=== PATIENT | male | born 1955 | race Caucasian/White ===

== ENCOUNTER 2018-07-12 18:15 | Observation (INO) ==
--- NOTE | 2018-07-12 19:02 | Emergency Department Note ---
Disposition Clinical Impression: CHF (congestive heart failure) Qualifiers: Heart failure type: unspecified Heart failure chronicity: unspecified Qualified Code(s): I50.9 - Heart failure, unspecified Dyspnea Qualifiers: Dyspnea type: unspecified Qualified Code(s): R06.00 - Dyspnea, unspecified Disposition: Admitted As Inpatient Condition: Good Referrals: Ronnie Moncada MD [Primary Care Provider] - Forms: ED Satisfaction Letter Time of Disposition: 20:52 SOB HPI - General Chief Complaint: ED Recheck/Abnormal Lab/Rx Stated Complaint: Needs admitted Time Seen by Provider: 07/12/18 18:40 Nursing Notes Reviewed: Yes Vital Signs Reviewed: Yes - History of Present Illness 63-year-old male smoker presents via wheelchair from his resident care spec's office earlier today with concern for pneumonia. Reportedly patient was therefore a office visit, chest x-ray was performed that showed pneumonia. His resident care spec, Dr. Ross, who advised him to come to the emergency department. Patient and family mention that patient had a admission to [facility] approximately 2 months ago. Since then he has been following up with primary care provider. They describe ration has finished a prescription of amoxicillin as well as doxycycline with the last dose yesterday. Patient does mention chronic dyspnea, is on home oxygen. He also describes increasing sputum produc tion and cough and chills. Family reports recent diagnosis of CHF. Denies any chest pain, confusion, nausea, vomiting, abdominal pain. - Related Data Home Medications Medication Instructions Recorded Confirmed Aspirin [Adult Aspirin] 81 mg PO DAILY 07/12/18 07/12/18 DiphenhydraMINE [Benadryl] 25 mg PO Q8H PRN 07/12/18 07/12/18 Doxycycline Hyclate 1 tab PO DAILY 07/12/18 07/12/18 Levothyroxine Sodium [Levoxyl] 150 mcg PO QAM 07/12/18 07/12/18 Metoprolol Succinate [Toprol Xl] 50 mg PO DAILY 07/12/18 07/12/18 Sacubitril/Valsartan 24/26 mg 1 tab PO BID 07/12/18 07/12/18 [Entresto 24 mg-26 mg Tablet] Torsemide [Demadex] 20 mg PO BID 07/12/18 07/12/18 Allergies Allergy/AdvReac Type Severity Reaction Status Date / Time dexamethasone Allergy "Ended up Verified 07/12/18 19:41 with a feeding tube." All systems ED: reviewed and negative except as stated. Review of Systems: As Per HPI Constitutional: Reports: as per HPI Eyes: Denies: eye pain ENT ED: Denies: throat pain, dysphagia Cardiovascular: Denies: chest pain Respiratory: Reports: cough, dyspnea Gastrointestinal: Reports: other (no salivation _ chronic). 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 Absent: conjunctival injection - ENT ENT exam: normal oropharynx, mucous membranes moist - Neck Neck exam: Present: full ROM - Chest Chest inspection: Present: symmetric chest wall rise - Respiratory Respiratory exam: Absent: respiratory distress, wheezes, stridor, accessory muscle use - Expanded Respiratory Exam Location: rhonchi: Left, Right - Cardiovascular Cardiovascular exam: Present: regular rate, normal rhythm - Abdominal Exam Abdominal exam: Present: soft, Non-Tender - Extremities Exam Extremities exam: Present: normal inspection, full ROM, normal capillary refill - Back Exam Back exam: Present: full ROM. Absent: CVA tenderness (R), CVA tenderness (L) - Neurological Exam Neurological exam: Present: alert - Psychiatric Psychiatric exam: Present: normal affect, normal mood - Skin Skin exam: Present: warm, dry, intact, normal color. Absent: rash, cyanosis, diaphoresis Course Course Narrative: 63-year-old male smoker presents via wheelchair from his resident care spec's office earlier today with concern for pneumonia. Recent diagnosis of CHF. Cxr at Dr. Aguiar's office today concerning for CHF and Dr. Ross was concerned for pneumonia. Chills and dyspnea at home, with worsening sputum production. Recently finished abx of amoxicllin and doxy rx by PCP. Recent admission around end of Apr 2018 at [place]. On examination patient is alert. Answers questions appropriately. No acute distress. Bilateral rhonchi and lungs. No abdominal tenderness. Heart regular rate and rhythm. Appears well-hydrated. There is mild edema to bilateral lower extremities. Patient is asking for something to eat. Patient afebrile here. Vitals within normal limits. We will plan for admission. Discussed patient with attending Dr. Em who agreed to see patient, advised for CRP and Lasix. Workup initiated. Will plan Abx after blood cultures. CXR: Findings suggest congestive heart failure with a right pleural effusion and fluid in the right minor fissure - Reevaluation(s) Reevaluation #1: No elevation in troponin in WBC. CRP 28. BNP >5000. 02 on room air 95%. BP recheck was 90/52, but after cuff adjustment 105/64. HR wnl. Pt asymptomatic. Hospitalist paged. Time: 20:50 Reevaluation #2: Patient discussed with and accepted by hospitalist Dr. Montano Time: 21:05 Vital Signs Temperature 97.0 F L 07/12/18 18:22 Pulse Rate 61 07/12/18 18:22 Respiratory Rate 22 07/12/18 18:22 Blood Pressure 104/66 07/12/18 18:22 O2 Sat by Pulse Oximetry 86 07/12/18 18:22 Temperature 97.0 F L 07/12/18 18:29 Pulse Rate 68 07/12/18 20:47 Respiratory Rate 16 07/12/18 20:47 Blood Pressure 105/64 07/12/18 20:47 O2 Sat by Pulse Oximetry 95 07/12/18 20:47 Oxygen Delivery Oxygen Delivery Room Air Shortness of Breath/Dyspnea - [facility] Narrative Medical decision making narrative: Laboratory Tests 07/12/18 07/12/18 07/12/18 19:46 19:46 19:46 WBC 5.8 RBC 3.79 L Hgb 13.5 Hct 39.2 MCV 103.4 H MCH 35.6 H MCHC 34.4 RDW 16.0 H Plt Count 199 MPV 9.6 Immature Gran % 0.3 Seg Neutrophils % 81.7 Lymphocytes % 10.3 Monocytes % 6.5 Eosinophils % 0.5 Basophils % 0.7 Neutrophils # 4.7 Lymphocytes # 0.6 Monocytes # 0.4 Eosinophils # 0.0 Basophils # 0.0 Sodium 129 L Potassium 3.8 Chloride 92 L Carbon Dioxide 28 BUN 17 Creatinine 1.53 H Est GFR ( Amer) 56 L Est GFR (Non-Af Amer) 46 L BUN/Creatinine Ratio 11 Glucose 107 H Calculated Osmolality 270 L Lactic Acid 1.6 Calcium 9.3 Troponin I < 0.03 C-Reactive Protein B-Natriuretic Peptide 07/12/18 07/12/18 19:46 19:46 WBC RBC Hgb Hct MCV MCH MCHC RDW Plt Count MPV Immature Gran % Seg Neutrophils % Lymphocytes % Monocytes % Eosinophils % Basophils % Neutrophils # Lymphocytes # Monocytes # Eosinophils # Basophils # Sodium Potassium Chloride Carbon Dioxide BUN Creatinine Est GFR ( Amer) Est GFR (Non-Af Amer) BUN/Creatinine Ratio Glucose Calculated Osmolality Lactic Acid Calcium Troponin I C-Reactive Protein 29 H B-Natriuretic Peptide > 5000 H - Lab Data Lab results reviewed: Yes I reviewed the patient's lab results. Result diagrams: 07/12/18 19:46 07/12/18 19:46 Lab Results 07/12/18 07/12/18 07/12/18 Range/Units 19:46 19:46 19:46 WBC 5.8 (4.3-11.1) K/mcL RBC 3.79 L (4.19-5.50) M/mcL Hgb 13.5 (12.9-16.9) g/dL Hct 39.2 (37.5-50.1) % MCV 103.4 H (83.0-100.0) fL MCH 35.6 H (28.0-33.3) pg MCHC 34.4 (31.6-35.5) g/dL RDW 16.0 H (11.5-14.5) % Plt Count 199 (140-400) K/mcL MPV 9.6 (9.4-12.4) fL Immature Gran % 0.3 (0-4) % Seg Neutrophils % 81.7 % Lymphocytes % 10.3 % Monocytes % 6.5 % Eosinophils % 0.5 % Basophils % 0.7 % Neutrophils # 4.7 (1.6-8.9) K/mcL Lymphocytes # 0.6 (0.6-4.6) K/mcL Monocytes # 0.4 (0.0-1.3) K/mcL Eosinophils # 0.0 (0.0-0.6) K/mcL Basophils # 0.0 (0.0-0.2) K/mcL Sodium 129 L (136-145) mEq/L Potassium 3.8 (3.5-5.1) mEq/L Chloride 92 L (98-107) mEq/L Carbon Dioxide 28 (23-29) mEq/L BUN 17 (8-23) mg/dL Creatinine 1.53 H (0.70-1.30) mg/dL Est GFR ( Amer) 56 L (> 60) Est GFR (Non-Af Amer) 46 L (> 60) BUN/Creatinine Ratio 11 (6-26) Glucose 107 H (70-105) mg/dL Calculated Osmolality 270 L (280-300) Lactic Acid 1.6 (0.5-2.2) mmol/L Calcium 9.3 (8.6-10.3) mg/dL Troponin I < 0.03 (< 0.04) ng/mL C-Reactive Protein (Less than 10) mg/L B-Natriuretic Peptide (Less than 100) pg/mL 07/12/18 07/12/18 Range/Units 19:46 19:46 WBC (4.3-11.1) K/mcL RBC (4.19-5.50) M/mcL Hgb (12.9-16.9) g/dL Hct (37.5-50.1) % MCV (83.0-100.0) fL MCH (28.0-33.3) pg MCHC (31.6-35.5) g/dL RDW (11.5-14.5) % Plt Count (140-400) K/mcL MPV (9.4-12.4) fL Immature Gran % (0-4) % Seg Neutrophils % % Lymphocytes % % Monocytes % % Eosinophils % % Basophils % % Neutrophils # (1.6-8.9) K/mcL Lymphocytes # (0.6-4.6) K/mcL Monocytes # (0.0-1.3) K/mcL Eosinophils # (0.0-0.6) K/mcL Basophils # (0.0-0.2) K/mcL Sodium (136-145) mEq/L Potassium (3.5-5.1) mEq/L Chloride (98-107) mEq/L Carbon Dioxide (23-29) mEq/L BUN (8-23) mg/dL Creatinine (0.70-1.30) mg/dL Est GFR ( Amer) (> 60) Est GFR (Non-Af Amer) (> 60) BUN/Creatinine Ratio (6-26) Glucose (70-105) mg/dL Calculated Osmolality (280-300) Lactic Acid (0.5-2.2) mmol/L Calcium (8.6-10.3) mg/dL Troponin I (< 0.04) ng/mL C-Reactive Protein 29 H (Less than 10) mg/L B-Natriuretic Peptide > 5000 H (Less than 100) pg/mL - Radiology Data Radiology results reviewed: Yes I reviewed the patient's radiology results. 2View CXR ordered at Dr. Galeano's office earlier in the day. FINDINGS: Status post median sternotomy. Transvenous pacer in place. Cardiomegaly. Pulmonary vascular congestion. Mild interstitial edema. Right-sided pleural effusion with some fluid loculated in the right minor fissure. XR/XR chest 2V IMPRESSION: 1. Findings suggest congestive heart failure with a right pleural effusion and fluid in the right minor fissure 2. The findings were sent to the Radiology Results Communication Center at 2:10 pm on 07/12/2018to be communicated to a licensed caregiver. D/ / Brandon Bernstein MD / Brandon Bernstein MD Interpreting Provider: Brandon Bernstein MD - EKG Data EKG attestation: Yes I reviewed and interpreted this EKG. EKG shows normal: Reports: sinus rhythm Rate: Reports: normal Rhythm: Reports: NSR, PVC's [place]/QRS: Reports: left axis deviation T wave inversions noted in: Reports: v6 When compared to previous EKG there are: previous EKG unavailable Interpretation: Reports: nonspecific ST-T wave changes Attestation Statement - Attestation Attestation: Dr. Em: I evaluated the patient with the APC and agree with his findings assessment and plan. I spent direct [id number] time with the patient. The patient has a history, clinical examination, and radiographic and laboratory studies highly suggestive of CHF. He was somewhat hypoxemic and hypotensive but remains stable, he was sitting upright eating and talkative with no evidence of confusion. Based on the patient's multiple comorbidities and apparent acute CHF, the hospital service was consulted and the patient will be admitted.
[2018-07-12 20:05] LABS: Basophils % 0.7 %; Eosinophils % 0.5 %; Hematocrit 39.2 % (37.5-50.1); Hemoglobin 13.5 g/dL (12.9-16.9); Immature Granulocytes % 0.3 % (0-4); Lymphocytes # 0.6 K/mcL (0.6-4.6); Lymphocytes % 10.3 %; Mean Corpuscular HGB Conc 34.4 g/dL (31.6-35.5); Mean Corpuscular Hemoglobin 35.6 pg (28.0-33.3); Mean Corpuscular Volume 103.4 fL (83.0-100.0); Mean Platelet Volume 9.6 fL (9.4-12.4); Monocytes # 0.4 K/mcL (0.0-1.3); Monocytes % 6.5 %; Neutrophils # 4.7 K/mcL (1.6-8.9); Platelet Count 199 K/mcL (140-400); Red Blood Count 3.79 M/mcL (4.19-5.50); Segmented Neutrophils % 81.7 %
[2018-07-12 20:21] LABS: BUN/Creatinine Ratio 11 (6-26); Blood Urea Nitrogen 17 mg/dL (8-23); Calcium 9.3 mg/dL (8.6-10.3); Carbon Dioxide 28 mEq/L (23-29); Chloride 92 mEq/L (98-107); Glucose 107 mg/dL (70-105); Osmolality,Calculated 270 (280-300); Potassium 3.8 mEq/L (3.5-5.1); Sodium 129 mEq/L (136-145); eGFR For Non-African Americans 46 (> 60)
[2018-07-12 20:22] LABS: Troponin I < 0.03 ng/mL (< 0.04)
[2018-07-12] MEDS ORDERED: Acetaminophen 325 MG TABLET PO PRN (23:38)
[2018-07-12] MEDS ORDERED: Furosemide 40 MG/4 ML VIAL IVP ONE (23:38)
[2018-07-13] MEDS ORDERED: Albuterol 2.5 MG/3 ML NEBULIZER IH PRN (02:41)
[2018-07-13] MEDS ORDERED: Naloxone 0.4 MG/ML INJ IVP PRN (02:41)
--- NOTE | 2018-07-13 03:32 | Internal Med History&Physical ---
Date of Encounter: 07/13/18 Time of Encounter: 01:00 Internal Medicine - H&P: HPI Chief complaint: cough Admitted From: Emergency Dept Plans for Post Hospital Care: Home History of present illness: Mr. Santiago is a 63 year old male who was sent by cardiology to ER for concerns of possible pneumonia. Patient was seeing Dr. Ross in consultation in the office today given his cardiac history. According to third-libertarian reports, Dr. Ross sent him to ER for concerns of pneumonia and shortness of breath. Workup in ER revealed patient to have cardiomegaly and concern for possible CHF. He was therefore admitted to hospitalist service. Upon my assessment of the patient in the ER, patient states he feels at baseline and has no complaints. I asked him why he came to ER, and he states he does not know. I asked him what his travel freight and passenger agent told him, and he states he does not know. He denies any chest pain, shortness of breath beyond his baseline, fevers, chills, vomiting, or diarrhea. He has had a chronic cough, which is not new. He is a smoker and has COPD. He was hospitalized a few months ago with pneumonia at another facility. He states he has an oxygen requirement and is supposed to wear oxygen at home, but he is noncompliant and does not wear oxygen except on rare occasions. I reviewed his labs and note that he has presumptive CKD with a creatinine of 1.53. We have no old labs to compare. He denies any prior history of kidney problems. He denies any prostate problems or urinary dysfunction. No further history could be obtained from patient as he reports no complaints or symptoms other than a chronic cough. Past Med Surg Social Fam HX - Past Medical History Attestation: Yes The following information was validated with the patient. Source: patient, other (ER notes) Medical history: coronary artery disease, renal disease, thyroid disease Psychiatric history: no psych history - Past Surgical History Surgical History: coronary bypass (CABG), pacemaker/AICD - Social History Smoking Status: Current every day smoker Smokeless Tobacco Status: No Alcohol use: none Drug use: none Current living situation: Home Activity Level: Independent ambulation Recent Out of Country Travel Within the Last 8 Weeks: No - Family History Mother History Unknown: Yes Internal Medicine - H&P: Meds Aspirin [Adult Aspirin] 81 mg PO DAILY 07/12/18 [History] DiphenhydraMINE [Benadryl] 25 mg PO Q8H PRN 07/12/18 [History] Doxycycline Hyclate 1 tab PO DAILY 07/12/18 [History] Levothyroxine Sodium [Levoxyl] 150 mcg PO QAM 07/12/18 [History] Metoprolol Succinate [Toprol Xl] 50 mg PO DAILY 07/12/18 [History] Sacubitril/Valsartan 24/26 mg [Entresto 24 mg-26 mg Tablet] 1 tab PO BID 07/12/18 [History] Torsemide [Demadex] 20 mg PO BID 07/12/18 [History] Allergy/AdvReac Type Severity Reaction Status Date / Time dexamethasone Allergy "Ended up Verified 07/12/18 19:41 with a feeding tube." - Constitutional Constitutional: no chills, no fever(s), no night sweats - EENT Eyes: no blurry vision, no change in vision Ears: no ear pain, no tinnitus Nose, mouth and throat: no nasal congestion, no sinus pressure, no sore throat - Cardiovascular Cardiovascular ROS IM: no chest pain, no dyspnea, no dyspnea on exertion, no ed madisyn, no orthopnea, no paroxysmal nocturnal dyspnea - Respiratory Respiratory: cough, wheezing, no dyspnea, no hemoptysis, no dyspnea on exertion, no pain on inspiration, no chest congestion, no excessive phlegm production, no change in phlegm color, no pain with cough - Gastrointestinal Gastrointestinal: no abdominal pain, no diarrhea, no hematemesis, no hematochezia, no melena, no nausea, no vomiting - Genitourinary Genitourinary ROS male: no dysuria, no flank pain, no hematuria - Musculoskeletal Musculoskeletal ROS IM: no arthralgias, no back pain - Integumentary Integumentary IM: no rash, no jaundice - Neurological Neurological ROS: no dizziness, no focal weakness, no frequent falls, no headache(s) - Psychiatric Psychiatric: no anxiety, no depression - Endocrine Endocrine IM: no polydipsia, no polyphagia, no polyuria - Allergic/Immunologic Allergic/Immunologic: no GI upset with certain foods - Constitutional Vitals: Temp Pulse Resp BP Pulse Ox 97.4 F L 79 18 126/80 98 07/12/18 23:56 07/12/18 23:56 07/12/18 23:56 07/12/18 23:56 07/12/18 23:56 General appearance: Present: cooperative, A&O X 3, pleasant, no acute distress, answers questions appropriately Exam: appears euvolemic - Head Head exam: Present: normal inspection - Eye Eye exam: Present: EOMI, PERRL. Absent: scleral icterus Pupils: Present: normal accommodation - ENT ENT exam: Present: mucous membranes dry, normal exam, normal oropharynx - Neck Neck exam general surgery: Present: full ROM, supple. Absent: tenderness, nuchal rigidity, thyromegaly - Respiratory Respiratory exam: Present: rhonchi, wheezes. Absent: chest wall tenderness, decreased breath sounds, rales, respiratory distress, tachypnea - Cardiovascular Cardiovascular exam: Present: distant heart sounds, RRR, +S1, +S2. Absent: diastolic murmur, systolic murmur Additional comments: pacer left upper chest - GI/Abdominal GI/Abdominal exam: Present: normal bowel sounds, soft. Absent: guarding, hepatomegaly, mass, rebound, splenomegaly, tenderness - Extremities Exam Extremities exam: Present: full ROM, normal capillary refill, warm, radial pulses palpable and symmetrical. Absent: calf tenderness, joint swelling, pedal edema, tenderness - Back Exam Back exam: Present: normal inspection. Absent: CVA tenderness (L), CVA tenderness (R) - Neurological Exam Neurological exam: Present: alert, CN II-XII intact, oriented X3, no focal d eficits - Psychiatric Psychiatric exam: Present: normal affect, normal mood - Skin Skin exam: Present: dry, intact, warm Internal Med - H&P Results - Labs CBC & Chem 7: 07/12/18 19:46 07/12/18 19:46 Labs: Short CBC 07/12/18 Range/Units 19:46 WBC 5.8 (4.3-11.1) K/mcL Hgb 13.5 (12.9-16.9) g/dL Hct 39.2 (37.5-50.1) % Plt Count 199 (140-400) K/mcL Neutrophils # 4.7 (1.6-8.9) K/mcL BMP 07/12/18 19:46 Sodium 129 L Potassium 3.8 Chloride 92 L Carbon Dioxide 28 BUN 17 Creatinine 1.53 H Glucose 107 H Calcium 9.3 Cardiac Enzymes 07/12/18 Range/Units 19:46 Troponin I < 0.03 (< 0.04) ng/mL - EKG Data -: EKG Interpreted by Myself EKG shows normal: sinus rhythm - EKG Data Prior EKG available for review: no EKG comments: 07/13/18 03:44 NSR; no acute changes - Diagnostic Studies Chest x-ray Status: image reviewed by me (cardiomegaly; right pleural effusion (small)) - Assessment and plan (1) CHF (congestive heart failure) Current Visit: Yes Status: Chronic Assessment and plan: 1. One time dose of Lasix given in ER. 2. Clinically, he appears euvolemic and not in any overt CHF. 3. Fluid restrict, monitor daily weights. 4. Will order ECHO to assess LV function. 5. Consult cardiology if clinically indicated. Qualifiers: Heart failure type: unspecified Heart failure chronicity: chronic Qualified Code(s): I50.9 - Heart failure, unspecified (2) COPD exacerbation Current Visit: Yes Status: Acute Assessment and plan: 1. Will treat with scheduled and PRN nebulized treatments. 2. Will add oral Levaquin. 3. Oxygen per nasal cannula. 4. Smoking cessation advised. (3) CKD (chronic kidney disease) stage 3, GFR 30-59 ml/min Current Visit: Yes Status: Suspected Assessment and plan: 1. Will order U/A and renal ultrasound. 2. Consult nephrology. 3. Hold diuretics and Entresto for now. . (4) DVT prophylaxis Current Visit: Yes Status: Acute Assessment and plan: 1. Heparin SQ.
[2018-07-13] MEDS: Ipratropium/Albuterol Neb 3 ML IH SCH ×4 (04:14→22:55)
[2018-07-13 04:15] LABS: Basophils % 0.6 %; Eosinophils % 0.4 %; Hematocrit 37.2 % (37.5-50.1); Hemoglobin 12.7 g/dL (12.9-16.9); Immature Granulocytes % 0.4 % (0-4); Lymphocytes # 0.8 K/mcL (0.6-4.6); Lymphocytes % 11.5 %; Mean Corpuscular HGB Conc 34.1 g/dL (31.6-35.5); Mean Corpuscular Hemoglobin 35.2 pg (28.0-33.3); Mean Platelet Volume 9.5 fL (9.4-12.4); Monocytes # 0.5 K/mcL (0.0-1.3); Monocytes % 6.9 %; Neutrophils # 5.6 K/mcL (1.6-8.9); Platelet Count 184 K/mcL (140-400); Red Blood Count 3.61 M/mcL (4.19-5.50); Red Cell Distribution Width 16.2 % (11.5-14.5); Segmented Neutrophils % 80.2 %
[2018-07-13 04:22] LABS: INR 1.4; Prothrombin Time 15.2 Seconds (9.4-12.1)
[2018-07-13 04:25] LABS: Activated Partial Thrombo Time 33.9 Seconds (26.0-36.0)
[2018-07-13 04:37] LABS: Albumin 3.7 g/dL (3.5-5.7); Albumin/Globulin Ratio 1.6 (1.1-2.2); Calcium 9.2 mg/dL (8.6-10.3); Chol/HDL Ratio 5.7 (0-4.9); Globulin 2.3 g/dL (2.4-3.5); Magnesium 1.8 mg/dL (1.6-2.6); Potassium 3.7 mEq/L (3.5-5.1)
[2018-07-13 05:16] LABS: Thyroid Stimulating Hormone 57.55 mcIU/mL (0.340-5.600)
[2018-07-13] MEDS: *HR* Heparin 5,000 UNIT/ML VIAL SQ SCH ×3 (05:45→20:26)
[2018-07-13] MEDS: Aspirin Enteric Coated 81 MG Tablet PO SCH (08:48)
[2018-07-13] MEDS: levoFLOXacin 500 MG TABLET PO SCH (08:48)
[2018-07-13] MEDS ORDERED: Perflutren Lipid Microsphere 1.3 ML in 0.9 % Sodium Chloride 8.7 ML IVP ONE (10:09)
[2018-07-13] MEDS ORDERED: Perflutren Lipid Microsphere 2 ML VIAL ONE (10:17)
[2018-07-13] MEDS: Metoprolol XL (24 HR) Succ 50 MG TAB.ER.24H PO SCH (10:42)
--- NOTE | 2018-07-13 11:58 | Event Note ---
Date of Encounter: 07/13/18 Time of Encounter: 11:57 I have performed a face- to face examination of this patient and agrees with the assessment and plan as laid out by the admitting hospitalist. Continue diuresis for now. Awaiting echo.
[2018-07-13 21:11] LABS: Bilirubin,Urine Negative (Negative); Blood,Urine Negative (Negative); Clarity,Urine Clear (Clear); Color,Urine Yellow (Yellow); Glucose,Urine (UA) Normal (Normal); Ketones,Urine Negative (Negative); Leukocyte Esterase,Urine Negative (Negative); Nitrite,Urine Negative (Negative); Protein,Urine 30 mg/dL (Neg-Trace); Urobilinogen,Urine Normal (Normal)
[2018-07-13 21:13] LABS: Bacteria,Urine None Seen per hpf (None-Few); Hyaline Casts,Urine None Seen per lpf (None-Few); RBC,Urine 0-3 per hpf (0-3); Squamous Epithelial Cell,Urine Few per lpf (None-Few); WBC,Urine 0-3 per hpf (0-3)
[2018-07-14] MEDS ORDERED: Acetaminophen 325 MG TABLET PO ONE (01:22)
[2018-07-14] MEDS: Ipratropium/Albuterol Neb 3 ML IH SCH ×2 (04:05→10:54)
[2018-07-14] MEDS: *HR* Heparin 5,000 UNIT/ML VIAL SQ SCH ×2 (05:25→14:11)
[2018-07-14] MEDS ORDERED: traMADol 50 MG TABLET PO ONE (05:27)
[2018-07-14] MEDS: levoFLOXacin 500 MG TABLET PO SCH (07:59)
[2018-07-14] MEDS: Aspirin Enteric Coated 81 MG Tablet PO SCH (07:59)
[2018-07-14] MEDS: Metoprolol XL (24 HR) Succ 50 MG TAB.ER.24H PO SCH (07:59)
[2018-07-14 08:21] VITALS: BP 115/70
--- NOTE | 2018-07-14 10:46 | Cardiology Consult Note ---
<Sadler,Faraaz - Last Filed: 07/14/18 14:03> Date of Encounter: 07/14/18 Time of Encounter: 10:43 Assessment and Plan (1) CHF (congestive heart failure) Current Visit: Yes Status: Chronic Mr. Santiago is a 63 year old male with PMHx significant for coronary artery disease s/p triple bypass (2001), ischemic cardiomyopathy with pacemaker/AICD (placed May 2017), COPD, hypothyroidism, throat cancer s/p chemo/radiation (2009) who presented from [facility] office. Productive cough for the past month; unresolved with antibiotics x 2 from PCP Hx exercise intolerance 0.5 PPD smoker Hx of AICD placement in May 2017 BMP: Na = 128; BUN/Cr = 18/1.49; GFR = 47 Trops: Negative x 3 TSH: 57.5 BNP: >5000 CXR (07/12/18): IMPRESSION: Findings suggest congestive heart failure with a right pleural effusion and fluid in the right minor fissure Echo (07/13/18): IMPRESSIONS: LVEF 15%. Severely dilated left ventricle. Severe global left ventricular systolic dysfunction. Indeterminate diastolic function. There is no LV thrombus. Atypical septal motion consistent with bundle branch block. Mildly dilated and hypokinetic right ventricle. Mild-moderate tricuspid regurgitation. Estimated RVSP is 38-48 mmHg. Mild-moderate pulmonary hypertension. A device lead was visualized in the right atrium and right ventricle. Pleural effusion noted. ICD Device Interrogation: There was an episode of VT in May 2018, which patient recieved ATP but no shock s; NSVT noted in September 2017, Apr 2018; No episodes noted since May 2018; Functioning Normal PLAN: Ischemic Cardiomyopathy with Systolic CHF --> NYHA Class III - IV Question of whether pt is compliant with medications Cont Home Meds --> Torsemide 20mg BID, Entresto (24mg-26mg) 1 tab BID, Metoprolol Succinate 50mg QD, Aspirin 81mg QD Follow up Outpatient Cardiology in 2 weeks Of note, TSH = 57.5; Consider repeating or further managing. Pt's home meds list Levothyroxine 150mcg qAM, but again question of compliance. Without control of thyroid function, CHF exacerbations likely to recur. Cardiology Signing Off, Please consult PRN, Follow up Scheduled Qualifiers: Heart failure type: unspecified Heart failure chronicity: chronic Qualified Code(s): I50.9 - Heart failure, unspecified (2) CAD (coronary artery disease) Current Visit: Yes Status: Acute Hx of Triple Bypass in 2001 Records from [facility] pending Denies chest pain, palpitations, headache, blurry vision at this time Presents with dyspnea, ischemic cardiomyopathy Trops: Negative x 3 EKG: HR = 63; CA = 205, QRS = 130, QTC = 473; Atrial Paced Rhythm with PVCs; Left Bundle Branch Block; Normal [place]; No acute ST changes; No previous EKG to compare to PLAN: Cont home meds Outpatient Followup Qualifiers: Coronary Disease-Associated Artery/Lesion type: unspecified vessel or lesion type [place] vs. transplanted heart: unspecified whether [place] or transplanted heart Associated angina: without angina Qualified Code(s): I25.10 - Atherosclerotic heart disease of [place] coronary artery without angina pectoris (3) Hypothyroidism Current Visit: Yes Status: Acute TSH on admission = 57.5 However, no overt clinical signs of hypothyroidism PLAN: Cont synthroid Recheck TSH outpatient and/or readjust medication; With uncontrolled thyroid, patient will cont to have CHF exacerbations Qualifiers: Hypothyroidism type: unspecified Qualified Code(s): E03.9 - Hypothyroidism, unspecified Discussion w patient/family: The assessment and plan as outlined above was discussed with the patient and/or family members who expressed understanding and agreement. All questions were answered. Thank you for involving us in the care of your patient. Please call with any questions. History of Present Illness Consult date: 07/14/18 Requesting physician: Nito Amaral Consult reason: CHF with EF = 15% on Echo Chief complaint: Cough, SOB History of present illness: Mr. Santiago is a 63 year old male with PMHx significant for coronary artery disease s/p triple bypass (2001), ischemic cardiomyopathy with pacemaker/AICD (placed May 2017), COPD, hypothyroidism, throat cancer s/p chemo/radiation (2009) who presented from [facility] office. Pt was meeting with car diologist, Dr. Ross, to establish care. While in office, pt complained of persistent productive cough s/p 2 rounds of antibiotics. Pt was noted to be SOB with decreased lung sounds and was sent for CXR, which indicated findings suggestive of CHF with right pleural effusion and cardiomegaly. Pt proceeded to ED and was admitted to hospitalist service. Pt states that he is at baseline as far as his breathing. Notes he is supposed to be on oxygen at home, but does not tolerate nasal cannula or ventimask to continuously wear it so he has not been using it. Notes he has been coughing throughout the day and night for some time. Cough is productive of clear/white sputum. Also notes significant exercise intolerance. States he gets SOB changing clothes, going to the bathroom, and doing most of his daily activities. Pt continues to smoke 0.5 PPD, and notes he never quit. Had been seen by ms access database developer at [facility], and says he recently stopped taking his insurance so he had to find a new ms access database developer. Records are with [facility] (Pending). Denies headache, blurry vision, chest pain, palpitations, abdominal pain, nausea, vomiting, diarrhea, dysuria. Notes history of triple bypass in 2001, history of throat cancer s/p chemo radiation in 2009, and recent AICD/defibrillator placement in May 2017. Denies hx of kidney dysfunction previously. On further workup, pt noted to have negative troponins, but elevated TSH, elevated BNP. Echo completed with LVEF = 15%, severely dilated LV, severe global LV systolic dysfunction. Initial Vitals in ED: T = 97.0, HR = 61, RR = 22, BP = 124/66, O2 = 86% on RA CBC: WNL BMP: Na = 128; BUN/Cr = 18/1.49; GFR = 47 Trops: Negative x 3 TSH: 57.5 BNP: >5000 EKG: HR = 63; CA = 205, QRS = 130, QTC = 473; Atrial Paced Rhythm with PVCs; Left Bundle Branch Block; Normal [place]; No acute ST changes; No previous EKG to compare to CXR (07/12/18): IMPRESSION: Findings suggest congestive heart failure with a right pleural effusion and fluid in the right minor fissure Echo (07/13/18): IMPRESSIONS: LVEF 15%. Severely dilated left ventricle. Severe global left ventricular systolic dysfunction. Indeterminate diastolic function. There is no LV thrombus. Atypical septal motion consistent with bundle branch block. Mildly dilated and hypokinetic right ventricle. Mild-moderate tricuspid regurgitation. Estimated RVSP is 38-48 mmHg. Mild-moderate pulmonary hypertension. A device lead was visualized in the right atrium and right ventricle. Pleural effusion noted. Past Med Surg Social Fam HX - Past Medical History Attestation: Yes The following information was validated with the patient. Source: patient, old records reviewed Medical history: coronary artery disease, renal disease, thyroid disease Psychiatric history: no psych history - Past Surgical History Surgical History: coronary bypass (CABG), pacemaker/AICD Additional surgical history: spinal, throat, defib - Social History Smoking Status: Current every day smoker Smokeless Tobacco Status: No Alcohol use: none Drug use: none - Family History Mother History Unknown: Yes Medications and Allergies Aspirin [Adult Aspirin] 81 mg PO DAILY 07/12/18 [History] DiphenhydraMINE [Benadryl] 25 mg PO Q8H PRN 07/12/18 [History] Levothyroxine Sodium [Levoxyl] 150 mcg PO QAM 07/12/18 [History] Metoprolol Succinate [Toprol Xl] 50 mg PO DAILY 07/12/18 [History] Sacubitril/Valsartan 24/26 mg [Entresto 24 mg-26 mg Tablet] 1 tab PO BID 07/12/18 [History] Torsemide [Demadex] 20 mg PO BID 07/12/18 [History] Albuterol Neb [Proventil Neb] 2.5 mg IH Q2H PRN inhsol 07/14/18 [Rx] levoFLOXacin [Levaquin] 500 mg PO DAILY #5 tablet 07/14/18 [Rx] Allergy/AdvReac Type Severity Reaction Status Date / Time dexamethasone Allergy "Ended up Verified 07/12/18 19:41 with a feeding tube." All Systems Review: The remainder of the systems were reviewed and are negative - Constitutional Constitutional: fatigue, malaise, no chills, no fever(s), no frequent falls, no headache(s), no lethargy - EENT Eyes: no blurred vision - Cardiovascular Cardiovascular: dyspnea at rest, no chest pain at rest, no chest pain with exertion, no diaphoresis, no irregular heart rhythm, no radiating jaw, neck or arm pain, no leg edema, no lightheadedness, no palpitations, no rapid heart rate, no syncope - Respiratory Respiratory: cough, dyspnea, wheezing - Gastrointestinal Gastrointestinal: no abdominal pain, no diarrhea, no nausea - Genitourinary Genitourinary: no dysuria - Musculoskeletal Musculoskeletal: no back pain, no myalgias - Integumentary Integumentary: no rash - Neurological Neurological: no dizziness, no focal weakness Physical Examination Vital Signs, Last 4 Hours Pulse Resp BP Pulse Ox 07/14/18 08:21 66 20 115/70 97 07/14/18 07:44 93 General: Conversant, No Apparent Distress HEENT: Atraumatic, Normocephaly, Other (Dry Mucous Membranes) Neck: No JVD, Normal carotid pulses Cardiac: Reg Rate and Rhythm, Normal S1 and S2, No Murmur, Other (Distant Heart sounds) Lungs: Other (B/L wheezes and rhonchi; decreased breath sounds at RLL) Neuro: Alert and responsive, No focal deficits noted Abdomen: Soft, Non-Tender Skin: No rashes noted on visualized skin Musculoskeletal: No Chest Wall Tenderness Extremities: Normal Pulses, Other (Mild LE Edema B/L) Results 07/14/18 11:02 07/14/18 11:02 Lab Results 07/13/18 07/13/18 12:09 18:01 Troponin I < 0.03 < 0.03 Consult Discharge Plan - Plan Instructions: Levofloxacin (By mouth), Heart Failure (DC), Chronic Obstructive Pulmonary Disease (DC) Referrals: Ronnie Moncada MD [Primary Care Provider] - 07/20/18 10:45 am Prescriptions: levoFLOXacin [Levaquin] 500 mg PO DAILY #5 tablet < A - Last Filed: 07/14/18 14:43> Date of Encounter: 07/14/18 - Attending Attestation I have personally performed a face to face evaluation on this patient. I have reviewed and agree with the documented findings and care plan as documented by the resident. History and Exam by me shows: 63-year-old male with history of ischemic cardiomyopathy status post ICD, chronic systolic CHF, presented with acute systolic CHF exacerbation. No chest pain or palpitations. Patient has been nonadherent with follow-up with his doctors at [facility], and he appears not reliable as he does not know his medi cations and defer care to his . Since admission yesterday he has been diuresed and he feels better today. Exercise tolerance has improved and is off supplemental oxygen AAOX3 in NAD at the bedside Hemodynamically stable Cardiopulmonary exam revealed S1, S2, mild basilar rales Rhythm reviewed -atrial paced complexes, QRS duration less than 120 ms Impression/plan: Continue torsemide 20 mg twice a day, metoprolol succinate, and Entresto. Fluid restricted low-salt diet. ICD check revealed no acute events. He needs to take his medications regularly and close follow-up in the office. Thanks, Milton Johnson MD [facility] Assessment and Plan Discussion w patient/family: The assessment and plan as outlined above was discussed with the patient and/or family members who expressed understanding and agreement. All questions were answered. Thank you for involving us in the care of your patient. Please call with any questions. History of Present Illness History of present illness: Mr. Santiago is a 63 year old male All Systems Review: The remainder of the systems were reviewed and are negative Physical Examination Vital Signs, Last 4 Hours Resp Pulse Ox 07/14/18 10:54 18 98 Results 07/14/18 11:02 07/14/18 11:02 Lab Results 07/13/18 07/14/18 07/14/18 18:01 11:02 11:02 WBC 6.8 Hgb 12.5 L Hct 37.1 L Plt Count 163 Sodium 129 L Potassium 3.8 Chloride 93 L Carbon Dioxide 27 BUN 18 Creatinine 1.40 H Glucose 101 Calcium 9.3 Total Bilirubin 2.2 H AST 10 L ALT 5 L Alkaline Phosphatase 91 Troponin I < 0.03 B-Natriuretic Peptide 07/14/18 11:02 WBC Hgb Hct Plt Count Sodium Potassium Chloride Carbon Dioxide BUN Creatinine Glucose Calcium Total Bilirubin AST ALT Alkaline Phosphatase Troponin I B-Natriuretic Peptide > 5000 H
[2018-07-14 11:25] LABS: Basophils % 0.4 %; Eosinophils % 0.1 %; Hematocrit 37.1 % (37.5-50.1); Hemoglobin 12.5 g/dL (12.9-16.9); Immature Granulocytes % 0.4 % (0-4); Lymphocytes # 0.6 K/mcL (0.6-4.6); Lymphocytes % 8.9 %; Mean Corpuscular HGB Conc 33.7 g/dL (31.6-35.5); Mean Corpuscular Hemoglobin 34.8 pg (28.0-33.3); Mean Corpuscular Volume 103.3 fL (83.0-100.0); Mean Platelet Volume 9.8 fL (9.4-12.4); Monocytes # 0.5 K/mcL (0.0-1.3); Monocytes % 7.3 %; Neutrophils # 5.7 K/mcL (1.6-8.9); Platelet Count 163 K/mcL (140-400); Red Blood Count 3.59 M/mcL (4.19-5.50); Red Cell Distribution Width 16.3 % (11.5-14.5); Segmented Neutrophils % 82.9 %
[2018-07-14 11:44] LABS: Alanine Aminotransferase 5 Units/L (7-52); Albumin 3.5 g/dL (3.5-5.7); Albumin/Globulin Ratio 1.6 (1.1-2.2); Alkaline Phosphatase 91 Units/L (34-104); Aspartate Amino Transferase 10 Units/L (13-39); BUN/Creatinine Ratio 13 (6-26); Bilirubin,Total 2.2 mg/dL (0.3-1.0); Blood Urea Nitrogen 18 mg/dL (8-23); Calcium 9.3 mg/dL (8.6-10.3); Carbon Dioxide 27 mEq/L (23-29); Chloride 93 mEq/L (98-107); Globulin 2.2 g/dL (2.4-3.5); Glucose 101 mg/dL (70-105); Osmolality,Calculated 270 (280-300); Potassium 3.8 mEq/L (3.5-5.1); Sodium 129 mEq/L (136-145); Total Protein 5.7 g/dL (6.4-8.9); eGFR For Non-African Americans 51 (> 60)
--- NOTE | 2018-07-14 12:38 | Nephrology Consult Note ---
Date of Encounter: 07/13/18 Time of Encounter: 16:00 Assessment and Plan (1) CKD (chronic kidney disease) stage 3, GFR 30-59 ml/min Current Visit: Yes Status: Suspected Patient likely has CKD Stage 3. No need for dialysis or renal biopsy based on current information. If creatinine stable overnight can follow-up as an outpatient. (2) CAD (coronary artery disease) Current Visit: Yes Status: Acute Qualifiers: Qualified Code(s): I25.10 - Atherosclerotic heart disease of [place] coronary artery without angina pectoris (3) Hyponatremia Current Visit: Yes Status: Acute Likely related to hypothyroidism. Treat underlying cause. History of Present Illness - Reason for Consult Consult date: 07/13/18 Chronic Kidney Disease - Chief Complaint CKD - History of Present Illness Patient in with dyspnea and nonspecific complaint. Consult placed for elevated creatinine with no baseline. Patient without new complaint and wants to go home. He denies NSAID use. He denies a family history of kidney disease. Past Med Surg Social Fam HX - Past Medical History Medical history: coronary artery disease, renal disease, thyroid disease Psychiatric history: no psych history - Past Surgical History Surgical History: coronary bypass (CABG), pacemaker/AICD Additional surgical history: spinal, throat, defib - Social History Smoking Status: Current every day smoker Smokeless Tobacco Status: No Alcohol use: none Drug use: none - Family History Mother History Unknown: Yes Medications and Allergies Aspirin [Adult Aspirin] 81 mg PO DAILY 07/12/18 [History] DiphenhydraMINE [Benadryl] 25 mg PO Q8H PRN 07/12/18 [History] Doxycycline Hyclate 1 tab PO DAILY 07/12/18 [History] Levothyroxine Sodium [Levoxyl] 150 mcg PO QAM 07/12/18 [History] Metoprolol Succinate [Toprol Xl] 50 mg PO DAILY 07/12/18 [History] Sacubitril/Valsartan 24/26 mg [Entresto 24 mg-26 mg Tablet] 1 tab PO BID 07/12/18 [History] Torsemide [Demadex] 20 mg PO BID 07/12/18 [History] 3 Allergy/AdvReac Type Severity Reaction Status Date / Time dexamethasone Allergy "Ended up Verified 07/12/18 19:41 with a feeding tube." Review of Systems All Systems: reviewed and no additional remarkable complaints except as stated ( as documented in the Hpi) Exam - Vital Signs Vital signs: Initial Vital Signs Temp Pulse Resp BP Pulse Ox 97.0 F L 61 22 104/66 86 07/12/18 18:22 07/12/18 18:22 07/12/18 18:22 07/12/18 18:22 07/12/18 18:22 Vital Signs - Last 8 Hours Pulse Resp BP Pulse Ox 07/14/18 10:54 18 98 07/14/18 08:21 66 20 115/70 97 07/14/18 07:44 93 Intake and Output 07/13/18 07/14/18 07/14/18 23:59 07:59 15:59 Intake Total 0 / 0 Output Total 325 / 325 300 / 300 Balance -325 / -325 -300 / -300 Intake: Oral 0 / 0 Output: Urine 325 / 325 300 / 300 Other: Meal Dinner Percent of Meal Consumed 20% Weight 91.3 kg 92 kg Patient Weight 07/14/18 23:59 Weight 92 kg - General Appearance General appearance: well-developed, well-nourished EENT: ATNC Neck: supple Cardiology: regular rate Gastrointestinal: no tenderness Integumentary: warm and dry Neurologic: alert and oriented x3 Musculoskeletal: no cyanosis Psychiatric: mood/affect appropriate Results - Lab Results 07/14/18 11:02 07/14/18 11:02 Most recent lab results Calcium 9.3 mg/dL (8.6-10.3) 07/14/18 11:02 Magnesium 1.8 mg/dL (1.6-2.6) 07/13/18 03:46 Consult Discharge Plan - Plan Referrals: Ronnie Moncada MD [Primary Care Provider] - 07/20/18 10:45 am
--- NOTE | 2018-07-14 12:42 | Nephrology Progress Note ---
Date of Encounter: 07/20/18 Time of Encounter: 12:41 - Assessment and Plan (1) Hyponatremia Status: Acute Likely related to hypothyroidism. Treat underlying cause. Improving. (2) CKD (chronic kidney disease) stage 3, GFR 30-59 ml/min Patient likely has CKD Stage 3. No need for dialysis or renal biopsy based on current information. If creatinine stable overnight can follow-up as an outpatient. (3) CAD (coronary artery disease) Status: Acute Qualifiers: Coronary Disease-Associated Artery/Lesion type: unspecified vessel or lesion type [place] vs. transplanted heart: unspecified whether [place] or transplanted heart Associated angina: without angina Qualified Code(s): I25.10 - [place] erosclerotic heart disease of [place] coronary artery without angina pectoris Subjective Principal diagnosis: hyponatremia Interval history: patient seen. no complaint Objective - Vital Signs Vital signs: Vital Signs Temp Pulse Resp BP Pulse Ox 07/14/18 10:54 18 98 07/14/18 08:21 66 20 115/70 97 07/14/18 07:44 93 07/14/18 04:06 16 99 07/14/18 03:42 97.5 F L 66 15 105/73 90 07/14/18 00:11 97.8 F 63 15 104/57 95 07/13/18 23:02 16 95 07/13/18 21:19 98.3 F 68 16 140/67 98 07/13/18 20:59 97.5 F L 71 20 115/65 92 07/13/18 17:05 97.5 F L 66 22 118/89 94 07/13/18 15:26 17 96 07/13/18 12:42 97.4 F L 62 17 124/102 96 Intake and Output 07/13/18 07/14/18 07/14/18 23:59 07:59 15:59 Intake Total 0 / 0 Output Total 325 / 325 300 / 300 Balance -325 / -325 -300 / -300 Intake: Oral 0 / 0 Output: Urine 325 / 325 300 / 300 Other: Meal Dinner Percent of Meal Consumed 20% Weight 91.3 kg 92 kg Patient Weight 07/14/18 23:59 Weight 92 kg - General Appearance General appearance: Present: well-developed, well-nourished EENT: Present: ATNC - Lab 07/14/18 11:02 07/14/18 11:02 Most recent lab results Calcium 9.3 mg/dL (8.6-10.3) 07/14/18 11:02 Magnesium 1.8 mg/dL (1.6-2.6) 07/13/18 03:46 Consult Discharge Plan - Plan Instructions: Levofloxacin (By mouth), Heart Failure (DC), Chronic Obstructive Pulmonary Disease (DC) Referrals: Ronnie Moncada MD [Primary Care Provider] - 07/20/18 10:45 am Prescriptions: RX: levoFLOXacin [Levaquin] 500 mg PO DAILY #5 tablet
--- NOTE | 2018-07-14 13:21 | Discharge Summary ---
- NOTES TO OUTPATIENT PROVIDER Notes to Outpatient Provider: Patient was in Obs status for COugh, weakness and SOB. He has poor EF 15% and an ICD in place. He also has been found to have elevated TSH despite being on 150 Synthroid and we have sent t3/t4 prior to DC . Please follow up on those . Also , he is requesting a new PCP and Cardiology . he is otherwise euvolemic Date of Encounter: 07/14/18 Time of Encounter: 13:19 - Discharge Diagnosis (1) CHF (congestive heart failure) Priority: Primary Status: Chronic Assessment and Plan: 1. One time dose of Lasix given in ER. 2. Clinically, he appears euvolemic and not in any overt CHF. 3. Fluid restrict, monitor daily weights. 4. Will order ECHO to assess LV function. 5. Consult cardiology if clinically indicated. Qualifiers: Heart failure type: unspecified Heart failure chronicity: chronic Qualified Code(s): I50.9 - Heart failure, unspecified (2) COPD exacerbation Priority: Secondary Status: Acute (3) CKD (chronic kidney disease) stage 3, GFR 30-59 ml/min Priority: Secondary Status: Suspected (4) DVT prophylaxis Priority: Secondary Status: Acute Hospital course: Mr. Santiago is a 63 year old male admitted to hospital for concern for pneumonia. He has been doing well on 2L o2 and is atbaseline. He will need 5 days of Levaquin and could DC home. He has poor EF and cards cleared the patient for outpatient followup. his TSH is elevated and this needs to be f/u outpt. He is requesting cardiology and new PCP Discharge discussed with: patient - Time Spent with Patient Total time spent providing and/or coordinating discharge services:40min - Discharge Medications Prescriptions: levoFLOXacin [Levaquin] 500 mg PO DAILY #5 tablet Home Medications: Aspirin [Adult Aspirin] 81 mg PO DAILY 07/12/18 [History] DiphenhydraMINE [Benadryl] 25 mg PO Q8H PRN 07/12/18 [History] Levothyroxine Sodium [Levoxyl] 150 mcg PO QAM 07/12/18 [History] Metoprolol Succinate [Toprol Xl] 50 mg PO DAILY 07/12/18 [History] Sacubitril/Valsartan 24/26 mg [Entresto 24 mg-26 mg Tablet] 1 tab PO BID 07/12/18 [History] Torsemide [Demadex] 20 mg PO BID 07/12/18 [History] Albuterol Neb [Proventil Neb] 2.5 mg IH Q2H PRN inhsol 07/14/18 [Rx] levoFLOXacin [Levaquin] 500 mg PO DAILY #5 tablet 07/14/18 [Rx] Allergies/Adverse Reactions: Allergy/AdvReac Type Severity Reaction Status Date / Time dexamethasone Allergy "Ended up Verified 07/12/18 19:41 with a feeding tube." Date of admission: 07/12/18 21:57 Primary care physician: Ronnie Moncada MD Consults: 07/13/18 02:41 Consult to Nephrology [CONS] Routine Consulting Provider: Kidney Lorena/OTIS/ASHLYN/JESSE Reason for Consult: CKD vs LAURIE Call Completed: No 07/13/18 19:36 Consult to Cardiology [CONS] Routine Comment: Consulting Provider: Cardiology Lorena Reason for Consult: HFrEF. worsened EF Time Notified: 15:00 Call Completed: Yes 07/14/18 09:42 Consult to Physical Therapy [CONS] Routine Comment: Evaluate, develop and implement POC Reason for Consult: assess mobility to guide placement Does patient have active BEDREST order?: No Is patient medically & hemodynamically stable?: Yes Patient assessed for mobility or mobilized this visit?: Yes - Constitutional Vitals: Temp Pulse Resp BP Pulse Ox 97.5 F L 66 18 115/70 98 07/14/18 03:42 07/14/18 08:21 07/14/18 10:54 07/14/18 08:21 07/14/18 10:54 General appearance: Present: cooperative, A&O X 3, pleasant, no acute distress, answers questions appropriately Exam: NAD AOx3 CTAB, No MRG, no JVD Abdo soft NT ND BS + - Patient Status Disposition: Home, Self-Care Condition: Fair Functional capacity at discharge: independent ambulation Overall status at discharge: patient is back to baseline - Discharge Instructions Follow Up With: Ronnie Moncada MD [Primary Care Provider] - 07/20/18 10:45 am - Diet and Activity Activity: increase activity as tolerated Diet: low salt diet
[2018-07-14 14:11] LABS: Triiodothyronine (T3) Free 2.22 pg/mL (2.50-3.90)
== END 2018-07-14 15:00 | disposition home or self-care (01) ==
LOC: EMEROOARM 18:15 → 2SOUTHHOLD 18:15 → SUATTDRO 21:57 → 2SOUTHHOLD 21:58
PROVIDERS: ADMIT Family Medicine; ATTEND Internal Medicine

== ENCOUNTER 2018-11-15 18:24 | Inpatient (IN) ==
--- NOTE | 2018-11-15 22:54 | Internal Med History&Physical ---
<Kee Baez S - Last Filed: 11/16/18 01:48> Date of Encounter: 11/16/18 Time of Encounter: 00:30 Internal Medicine - H&P: HPI Chief complaint: sick Admitted From: Hospital to Hospital Transfer Plans for Post Hospital Care: Home History of present illness: Mr. Santiago is a 63 year old male with PMH of COPD, CHF, CKD, HTN, and tobacco abuse. He is here as a [facility] transfer. [facility] reported that he has had multiple falls over the last few days. He is really unable to give a history. He is very annoyed at questions and states that he has told people multiple times what happened, but is unable to recall anything. Reported no chest pain, no active chest pain. He has SOB but doesn't really describe any changes, has some congestion. Overall is a very poor historian, He was found to have a troponin of 15 at [facility] with a Creatinine of 3.21, baseline unclear. LA was 6 at [facility]. XR chest showed a large pleural effusion. EKG on arrival showed some T wave ischemia. No CVC was inserted at [facility], he was given 4 L of fluid bolus. He was transferred to [facility] for further workup and evaluation. He was subsequently moved to ICU for closer management after CVC placed in step-down unit. Past Med Surg Social Fam HX - Past Medical History Medical history: coronary artery disease, renal disease, thyroid disease Psychiatric history: no psych history - Past Surgical History Surgical History: coronary bypass (CABG), pacemaker/AICD Additional surgical history: spinal, throat, defib - Social History Smoking Status: Current every day smoker Smokeless Tobacco Status: No Alcohol use: none Drug use: none Internal Medicine - H&P: Meds Aspirin [Adult Aspirin] 81 mg PO DAILY 07/12/18 [History] DiphenhydraMINE [Benadryl] 25 mg PO Q8H PRN 07/12/18 [History] Levothyroxine Sodium [Levoxyl] 150 mcg PO QAM 07/12/18 [History] Metoprolol Succinate [Toprol Xl] 50 mg PO DAILY 07/12/18 [History] Sacubitril/Valsartan 24/26 mg [Entresto 24 mg-26 mg Tablet] 1 tab PO BID 07/12/18 [History] Torsemide [Demadex] 20 mg PO BID 07/12/18 [History] Albuterol Neb [Proventil Neb] 2.5 mg IH Q2H PRN inhsol 07/14/18 [Rx] levoFLOXacin [Levaquin] 500 mg PO DAILY #5 tablet 07/14/18 [Rx] Allergy/AdvReac Type Severity Reaction Status Date / Time dexamethasone Allergy "Ended up Verified 07/12/18 19:41 with a feeding tube." ROS unobtainable: due to mental status All Systems PM: A 10-system review of systems was performed and is negative for pertinent findings except as documented above in the HPI. - Constitutional Exam: general - pt in acute distress, aox2, laying in bed, very uncomfortable heent - dry MM, NCAT, discheleved, no scleral icterus neck - trachea midline, no JVD cardio - rrr, s1s2, cta no mrg lungs - coarse breath sounds in all lung al, bilateral rhonchi and wheezing abd - soft ntnd, no peritoneal signs skin- intact, warm, dry, heavily tattooed psych - unable to assess neuro- unable to assess extremeties - moves all extremities w/o difficulty, no pitting edema bilaterally Internal Med - H&P Results - Labs CBC & Chem 7: 11/15/18 23:11 - Assessment and Plan (1) Septic shock Current Visit: Yes Status: Acute Assessment and plan: Pt with hypotension on arrival, MAP<65 - nurse paged me on arrival that SBP was mid to high 60's - no CVC inserted at the [facility] - pt given 4 L IVF at [facility] and then a 500cc fluid bolus on arrival here Likely secondary to suspected PNA vs cardiogenic from NSTEMI EKG showed T wave ischemia in v5/6 Meets severe sepsis criteria for lactic acid 6 on admission with hypotension, hypothermia Plan: - 75cc/hr IVF 0.9% NS - see procedure note for femoral line inserted - KUB pending - XR pending - blood cx pending - vancomycin, zosyn, levaquin day 1 - levophed keep MAP>65 - vasopressin added , pt remained hypotensive - pt to be transferred to ICU for further management and treatment CODE STATUS confirmed with pt and his , he is DNR-DNI-CCA. Poor prognosis. (2) Acute kidney injury superimposed on CKD Current Visit: Yes Status: Acute Assessment and plan: Creatinine 3.21 on admission to [facility], has underlying CKD 3 Likely pre-renal in the setting of poor PO intake and unknown down time with multiple falls Plan: - urine studies pending - avoid nephrotoxins - monitor renal fxn - strict I&O (3) NSTEMI (non-ST elevated myocardial infarction) Current Visit: Yes Status: Acute Assessment and plan: Pt with known hx of cardiac disease, CAD, s/p CABG - initial troponin of 15 at [facility], repeat at [facility] 15.24 EKG showed t wave ischemia in v5/6 Previous ECHO in July showed a LVEF of 15% Plan: - cardiology consulted - ECHO pending - troponins trending - continue heparin drip (4) Lactic acidosis Current Visit: Yes Status: Acute Assessment and plan: LA 6 on admission, repeat 2.0 on [facility] Resolved, likely secondary to severe se psis and dehydration. (5) CAD (coronary artery disease) Current Visit: No Status: Chronic Assessment and plan: chronic, has hx of cabg and CAD with multiple RF. Qualifiers: Coronary Disease-Associated Artery/Lesion type: unspecified vessel or lesion type [place] vs. transplanted heart: unspecified whether [place] or transplanted heart Associated angina: without angina Qualified Code(s): I25.10 - Atherosclerotic heart disease of [place] coronary artery without angina pectoris (6) DVT prophylaxis Current Visit: No Status: Acute Assessment and plan: heparin drip (7) Dyspnea Current Visit: Yes Status: Acute Assessment and plan: secondary to AECOPD, PNA. Qualifiers: Dyspnea type: unspecified Qualified Code(s): R06.00 - Dyspnea, unspecified (8) Hypothyroidism Current Visit: No Status: Chronic Assessment and plan: continue synthroid. chronic. Qualifiers: Hypothyroidism type: unspecified Qualified Code(s): E03.9 - Hypothyroidism, unspecified (9) CHF (congestive heart failure) Current Visit: No Status: Chronic Assessment and plan: Reportedly has CHF hx. ECHO from 07/2018 LVEF 15%. Severely dilated left ventricle. Severe global left ventricular systolic dysfunction. Indeterminate diastolic function. There is no LV thrombus. Atypical septal motion consistent with bundle branch block. Mildly dilated and hypokinetic right ventricle. Mild-moderate tricuspid regurgitation. Estimated RVSP is 38-48 mmHg. Mild-moderate pulmonary hypertension. A device lead was visualized in the right atrium and right ventricle. Pleural effusion noted. Qualifiers: Heart failure type: systolic Heart failure chronicity: chronic Qualified Code(s): I50.22 - Chronic systolic (congestive) heart failure (10) COPD (chronic obstructive pulmonary disease) Current Visit: No Status: Chronic Assessment and plan: Chronic, not on home oxygen. Likely in exacerbation from underlying PNA. See above for PNA. Qualifiers: COPD type: unspecified COPD Qualified Code(s): J44.9 - Chronic obstructive pulmonary disease, unspecified (11) Hypotension Current Visit: Yes Status: Acute Assessment and plan: Hypotensive with a MAP<65 requiring ICU and vasopressors. See above for septic shock. CVC in place, refer to procedure note. Qualifiers: Hypotension type: unspecified hypotension type Qualified Code(s): I95.9 - Hypotension, unspecified (12) History of coronary artery bypass graft Current Visit: No Status: Chronic Assessment and plan: pt is s/p cabg. (13) Tobacco abuse Current Visit: No Status: Chronic Assessment and plan: smokes 1ppd. chronic, counseled. (14) Pleural effusion Current Visit: Yes Status: Acute Assessment and plan: See above for PNA. (15) Pneumonia Current Visit: Yes Status: Suspected Assessment and plan: Suspected PNA. Pt with increasing oxygen demands, sputum production and cough - unknown if pt has had other recent hospitalizations - pt is high risk, given this will cover with broad spectrum abx XR chest from [facility] showed large pleural effusion, no images available Plan: - repeat STAT x-ray chest - abx as above - urine anitgens pending - respiratory infxn panel pending - blood cx pending - sputum cx pending - duonebs q4hr - solu-medrol q8hr - HOB elevation, aspiration precautions Qualifiers: Pneumonia type: due to unspecified organism Laterality: unspecified laterality Lung location: unspecified part of lung Qualified Code(s): J18.9 - Pneumonia, unspecified organism - Time Spent With Patient Total time spent is greater than 50% in coordination of care (as documented) at patient's floor/unit and/or counseling patient: Greater than 35 minutes <Eduardo Anthony - Last Filed: 11/16/18 02:48> Date of Encounter: 11/16/18 Time of Encounter: 00:40 - Constitutional Constitutional: chills, fatigue, falls, malaise, weakness - EENT Nose, mouth and throat: no nasal congestion, no sore throat - Cardiovascular Cardiovascular ROS IM: dyspnea, dyspnea on exertion, syncope, no chest pain, no edema, no orthopnea, no paroxysmal nocturnal dyspnea - Respiratory Respiratory: cough, dyspnea, chest congestion, change in phlegm color, pain with cough, no hemoptysis - Gastrointestinal Gastrointestinal: no abdominal pain, no diarrhea, no hematemesis, no hematochezia, no melena, no vomiting - Genitourinary Genitourinary ROS male: dysuria, no flank pain, no hematuria - Musculoskeletal Musculoskeletal ROS IM: arthralgias, back pain - Integumentary Integumentary IM: no rash, no jaundice - Neurological Neurological ROS: dizziness, frequent falls, no disequilibrium, no focal weakness, no headache(s), no numbness - Endocrine Endocrine IM: cold intolerance, fatigue - Hematologic/Lymphatic Hematologic/Lymphatic: easy bruising - Allergic/Immunologic Allergic/Immunologic: wheezing, no GI upset with certain foods - Constitutional Vitals: Temp Pulse Resp BP Pulse Ox 96.6 F L 92 15 95/76 96 11/16/18 00:45 11/16/18 02:18 11/16/18 02:18 11/16/18 02:18 11/16/18 02:18 General appearance: Present: A&O X 3, severe distress Exam: Acutely ill appearing in respiratory distress, hypotensive, hypothermic, and with poor peripheral perfusion - Head Head exam: Present: atraumatic - Eye Eye exam: Present: EOMI, PERRL. Absent: scleral icterus - ENT ENT exam: Present: mucous membranes dry, normal exam, normal oropharynx - Neck Neck exam general surgery: Present: trachea midline. Absent: supple (tight skin from prior surgery/raditation for Head/Neck CA) - Respiratory Respiratory exam: Present: accessory muscle use, prolonged expiratory phase, rales, respiratory distress, rhonchi, tachypnea. Absent: chest wall tenderness, wheezes - Cardiovascular Cardiovascular exam: Present: diastolic murmur, +S1, +S2. Absent: distant heart sounds, systolic murmur - GI/Abdominal GI/Abdominal exam: Present: normal bowel sounds, soft. Absent: guarding, hepatomegaly, mass, rebound, splenomegaly, tenderness - Extremities Exam Extremities exam: Present: cyanotic, full ROM. Absent: calf tenderness, normal capillary refill (markedly delayed), tenderness, warm, radial pulses palpable and symmetrical - Back Exam Back exam: Absent: CVA tenderness (L), CVA tenderness (R) - Neurological Exam Neurological exam: Present: alert, oriented X3, no focal deficits, strengths equal and symetr throughout - Psychiatric Psychiatric exam: Present: normal affect, normal mood - Skin Skin exam: Present: dry, intact, warm (centrally; cool extremities) Internal Med - H&P Results - Labs CBC & Chem 7: 11/15/18 23:11 11/16/18 01:30 Labs: Short CBC 11/15/18 Range/Units 23:11 WBC 8.9 (4.3-11.1) K/mcL Hgb 13.5 (12.9-16.9) g/dL Hct 42.5 (37.5-50.1) % Plt Count 220 (140-400) K/mcL BMP 11/16/18 01:30 Sodium 130 L Potassium 4.2 Chloride 88 L Carbon Dioxide 27 BUN 63 H Creatinine 3.38 H Glucose 136 H Calcium 7.7 L Cardiac Enzymes 11/15/18 Range/Units 23:15 Troponin I 15.24 H* (< 0.04) ng/mL Liver Function 11/16/18 Range/Units 01:30 Total Bilirubin 1.9 H (0.3-1.0) mg/dL AST 33 (13-39) Units/L ALT 14 (7-52) Units/L Alkaline Phosphatase 117 H (34-104) Units/L Albumin 3.7 (3.5-5.7) g/dL - ABG Interpretation ABG results: 11/16/18 01:32 ABG pH 7.24 L ABG pCO2 64 H ABG pO2 59 L ABG HCO3 27 ABG Total CO2 29 H ABG O2 Saturation 84 L ABG Base Excess -2 - EKG Data -: EKG Interpreted by Myself - EKG Data Prior EKG available for review: no EKG comments: 11/16/18 02:35 lateral wall ischemic changes - Assessment and Plan (1) CHF (congestive heart failure) Current Visit: No Status: Chronic Qualifiers: Heart failure type: systolic Heart failure chronicity: chronic Qualified Code(s): I50.22 - Chronic systolic (congestive) heart failure (2) Dyspnea Current Visit: Yes Status: Acute Qualifiers: Dyspnea type: unspecified Qualified Code(s): R06.00 - Dyspnea, unspecified (3) DVT prophylaxis Current Visit: No Status: Acute (4) CAD (coronary artery disease) Current Visit: No Status: Chronic Qualifiers: Coronary Disease-Associated Artery/Lesion type: unspecified vessel or lesion type [place] vs. transplanted heart: unspecified whether [place] or transplanted heart Associated angina: without angina Qualified Code(s): I25.10 - Atherosclerotic heart disease of [place] coronary artery without angina pectoris (5) Hypothyroidism Current Visit: No Status: Chronic Qualifiers: Hypothyroidism type: unspecified Qualified Code(s): E03.9 - Hypothyroidism, unspecified (6) Septic shock Current Visit: Yes Status: Acute (7) Acute kidney injury superimposed on CKD Current Visit: Yes Status: Acute (8) NSTEMI (non-ST elevated myocardial infarction) Current Visit: Yes Status: Acute (9) Lactic acidosis Current Visit: Yes Status: Acute (10) COPD (chronic obstructive pulmonary disease) Current Visit: No Status: Chronic Qualifiers: COPD type: unspecified COPD Qualified Code(s): J44.9 - Chronic obstructive pulmonary disease, unspecified (11) Hypotension Current Visit: Yes Status: Acute Qualifiers: Hypotension type: unspecified hypotension type Qualified Code(s): I95.9 - Hypotension, unspecified (12) History of coronary artery bypass graft Current Visit: No Status: Chronic (13) Tobacco abuse Current Visit: No Status: Chronic (14) Pleural effusion Current Visit: Yes Status: Acute (15) Pneumonia Current Visit: Yes Status: Suspected Qualifiers: Pneumonia type: due to unspecified organism Laterality: unspecified laterality Lung location: unspecified part of lung Qualified Code(s): J18.9 - Pneumonia, unspecified organism - Time Spent With Patient Total time spent is greater than 50% in coordination of care (as documented) at patient's floor/unit and/or counseling patient: - Attending Attestation I was called to bedside STAT by Dr. Baez and patient's primary nurse due to patient's decompensation and need for stabilization. I discussed with them the patient TAQUERIA briefly, pertinent records from [facility], labs, imaging findings, and exam findings with Dr. Baez. I then saw him at the bedside and noted he was significantly hypotensive, had severe difficulty breathing, and had evidence of poor perfusion peripherally. I reviewed the records from [facility] and noted that he had significant lactic acidosis, acute kidney failure, non-STEMI, and evidence of sepsis based upon lab data and exam findings provided thus far. I discussed with the patient his critical situation and recommended transfer to ICU, placing a central line, aggressively hydrating him and providing pressor support, and likely intubating. I discussed CODE STATUS with him and he adamantly refused intubation, chest compressions, and/or defibrillation. He is strictly DNR CCA/DNI. He understands there is a high likelihood of and likely not surviving the next 24 hours. He agreed to aggressive measures in the form of fluids, central line, pressors, antibiotics, steroids, and aerosols. He was agreeable to try BiPAP, but he refuses intubation and/or other heroic measures. I contacted his by telephone and spoke with her. I informed her of his grave situation and that he will likely not survive the evening/morning. She understood and was tearful on the phone. She confirmed his wishes and CODE STATUS as DNR CCA/DNI. Dr. Baez and I placed a CVC in the right femoral area urgently after obtaining informed consent. We then moved patient to intensive care unit for ongoing critical care and supportive measures. Despite several fluid boluses at [facility], ongoing ICU management, as well as 2 different pressors, he remains hypotensive. We are adding steroids for treatment of his COPD and possible acquired adrenal insufficiency. He remains significantly hypoxemic and refuses intubation. He is agreeable to BiPAP treatment temporarily, however. We are maximizing support in the ICU to the capabilities he is allowing us to perform. Despite such measures, he remains critical and has minimally improved. I informed him and his again that he remains critically ill and that without intervention, he will likely not survive the evening. Additionally, I informed him that even with intervention, he likely may not survive. He and his both voiced understanding, and he wishes to remain DNR CCA/DNI CODE STATUS. Should he decompensate further, he will likely require comfort measures. I discussed this with him and his , and those are his wishes. Other than my comments above and documented exam findings, I agree with Dr. Baez's assessment and plan. Note that a total of 65 minutes critical care time spent with patient thus far excluding separately dictated procedures.
[2018-11-15] MEDS ORDERED: Naloxone 0.4 MG/ML INJ IVP PRN (23:04)
[2018-11-15] MEDS ORDERED: Heparin 25,000 UNIT/250 ML D5W 25,000 UNIT/250 ML IV.SOLN IVC SCH (23:15)
[2018-11-15] MEDS ORDERED: 0.9 % Sodium Chloride 500 ML IVC ONE (23:32)
[2018-11-15] MEDS ORDERED: 0.9 % Sodium Chloride 500 ML ONE (23:34)
[2018-11-15] MEDS ORDERED: Levofloxacin 750 MG/150 ML 750 MG/150 ML BAG IVPB SCH (23:45)
[2018-11-16 00:02] LABS: Magnesium 2.3 mg/dL (1.6-2.6); Phosphorous 6.2 mg/dL (2.7-4.5)
[2018-11-16] MEDS: Ipratropium/Albuterol Neb 3 ML IH SCH ×7 (00:04→23:24)
[2018-11-16 00:07] LABS: Heparin anti-factor XA UFH 0.54 IU/mL (0.30-0.70)
[2018-11-16 00:08] LABS: INR 1.4; Prothrombin Time 15.4 Seconds (9.4-12.1)
[2018-11-16 00:15] LABS: Hematocrit 42.5 % (37.5-50.1); Hemoglobin 13.5 g/dL (12.9-16.9); Mean Corpuscular HGB Conc 31.8 g/dL (31.6-35.5); Mean Corpuscular Hemoglobin 33.8 pg (28.0-33.3); Mean Corpuscular Volume 106.3 fL (83.0-100.0); Mean Platelet Volume 10.1 fL (9.4-12.4); Platelet Count 220 K/mcL (140-400); Red Cell Distribution Width 17.4 % (11.5-14.5)
--- NOTE | 2018-11-16 00:22 | Procedure Note ---
<Kee Baez - Last Filed: 11/16/18 00:19> Date of procedure: 11/16/18 Pre-op diagnosis: hypotension Post-op diagnosis: same Procedure: A time-out was completed verifying correct patient, procedure, site, positioning, and special equipment if applicable. The patient was placed in a dependent position appropriate for central line placement based on the vein to be cannulated. The patients right groin was prepped and draped in sterile fashion. 1% Lidocaine was used to anesthetize the surrounding skin area. A triple lumen Cordis catheter was introduced into the the common femoral vein using the Seldinger technique with palpation of the femoral aa, going directly medial to femoral vv. The catheter was threaded smoothly over the guide wire and appropriate blood return was obtained. Each lumen of the catheter was evacuated of air and flushed with sterile saline. The catheter was then sutured in place to the skin and a sterile dressing applied. Perfusion to the extremity distal to the point of catheter insertion was checked and found to be adequate. Attending and Resident was present for the entire procedure. Estimated Blood Loss: 5cc The patient tolerated the procedure well and there were no complications. Anesthesia: local Surgeon: Kee Baez Was there an personnel assistant present: Yes Prevention Rn: Eduardo Anthony Estimated blood loss (cc): 5 Specimen: none Pathology: none sent Condition: critical Disposition: other (on step down, will transfer to ICU) <Eduardo Anthony - Last Filed: 11/16/18 02:51> Procedure: I was present, supervised, and instructed Dr. Baez during the entire pr ocedure. She performed admirably and successfully placed a femoral CVC using Seldinger technique on the first attempt. Patient tolerated procedure well with minimal blood loss.
[2018-11-16] MEDS ORDERED: Norepinephrine 4 MG in D5% in Water 250 ML IVC SCH ×2 (00:30)
[2018-11-16] MEDS ORDERED: 0.9 % Sodium Chloride 1,000 ML IVC SCH (01:00)
[2018-11-16] MEDS ORDERED: Ondansetron 4 MG/2 ML VIAL ONE (01:10)
[2018-11-16] MEDS ORDERED: Ondansetron 4 MG/2 ML VIAL IVP PRN (01:11)
[2018-11-16] MEDS ORDERED: Vasopressin 40 UNIT in D5% in Water 100 ML IV SCH (01:15)
[2018-11-16] MEDS ORDERED: 0.9 % Sodium Chloride 1,000 ML IVC ONE (01:26)
[2018-11-16] MEDS ORDERED: Phenylephrine 10 MG in D5% in Water 250 ML IVC SCH (01:30)
--- NOTE | 2018-11-16 01:34 | Event Note ---
Date of Encounter: 11/16/18 Time of Encounter: 01:28 Came to assess patient for hypoxemia and persistent hypotension. Patient unresponsive to pressors thus far. I will give another fluid bolus, continue pressors, and increase steroids. I discussed CODE status again, and he confirmed DNRCCA/DNI. He does not want CPR, defibrillation, or intubation. He wishes to be kept comfortable in that situation. I called his and asked her to come in as I do not think he'll survive the next few hours.
[2018-11-16 01:35] LABS: ABG Base Excess -2 mEq/L (-2 to 3); ABG HCO3 27 mEq/L (21-27); ABG Oxygen Saturation 84 % (95-98); ABG PCO2 64 mmHg (35-45); ABG PH 7.24 pH Units (7.32-7.45); ABG PO2 59 mmHg (85-104); ABG TCO2 29 mEq/L (20-26)
[2018-11-16] MEDS: methylPREDNISolone 125 MG/2 ML VIAL IVP SCH ×3 (01:57→13:24)
[2018-11-16 02:05] LABS: Albumin 3.7 g/dL (3.5-5.7); Albumin/Globulin Ratio 1.2 (1.1-2.2); Bilirubin,Total 1.9 mg/dL (0.3-1.0); Calcium 7.7 mg/dL (8.6-10.3); Potassium 4.2 mEq/L (3.5-5.1); Total Protein 6.7 g/dL (6.4-8.9)
[2018-11-16] MEDS ORDERED: Levofloxacin 750 MG/150 ML 750 MG/150 ML BAG IVPB SCH (02:15)
[2018-11-16] MEDS ORDERED: Norepinephrine 8 MG in D5% in Water 500 ML IVC SCH (03:30)
[2018-11-16 05:29] LABS: Adenovirus Not Detected (Not Detect); Bordetella Pertussis Not Detected (Not Detect); Chlamydophila pneumoniae Not Detected (Not Detect); Coronavirus 229E Not Detected (Not Detect); Coronavirus HKU1 Not Detected (Not Detect); Coronavirus NL63 Not Detected (Not Detect); Coronavirus OC43 Not Detected (Not Detect); Human Metapneumovirus Not Detected (Not Detect); Human Rhinovirus/Enterovirus Not Detected (Not Detect); Influenza A Subtype 2009 H1 Not Detected (Not Detect); Influenza A Untypeable Not Detected (Not Detect); Influenza B Not Detected (Not Detect); Mycoplasma pneumoniae Not Detected (Not Detect); Parainfluenza Virus 1 Not Detected (Not Detect); Parainfluenza Virus 2 Not Detected (Not Detect); Parainfluenza Virus 3 Not Detected (Not Detect); Parainfluenza Virus 4 Not Detected (Not Detect); Respiratory Syncytial Virus Not Detected (Not Detect)
[2018-11-16 05:31] LABS: Hematocrit 47.5 % (37.5-50.1); Hemoglobin 14.6 g/dL (12.9-16.9); Mean Corpuscular HGB Conc 30.7 g/dL (31.6-35.5); Mean Corpuscular Hemoglobin 33.4 pg (28.0-33.3); Mean Corpuscular Volume 108.7 fL (83.0-100.0); Mean Platelet Volume 10.2 fL (9.4-12.4); Platelet Count 243 K/mcL (140-400); Red Blood Count 4.37 M/mcL (4.19-5.50); Red Cell Distribution Width 17.2 % (11.5-14.5)
[2018-11-16 05:32] LABS: VBG Ionized Calcium 0.88 mmol/L (1.15-1.35)
[2018-11-16 05:58] LABS: Albumin 3.7 g/dL (3.5-5.7); Albumin/Globulin Ratio 1.4 (1.1-2.2); Bilirubin,Total 2.4 mg/dL (0.3-1.0); Calcium 8.2 mg/dL (8.6-10.3); Globulin 2.6 g/dL (2.4-3.5); Potassium 4.7 mEq/L (3.5-5.1); Total Protein 6.3 g/dL (6.4-8.9); Troponin I 11.44 ng/mL (< 0.04)
[2018-11-16] MEDS ORDERED: Piperacillin/Tazobactam 3.375 GM in 0.9 % Sodium Chloride Mini Bag 100 ML IVPB SCH ×2 (06:00→18:00)
[2018-11-16] MEDS ORDERED: Calcium Gluconate 2,000 MG in 0.9 % Sodium Chloride 100 ML IVPB ONE (06:41)
[2018-11-16] MEDS ORDERED: Perflutren Lipid Microsphere 1.3 ML in 0.9 % Sodium Chloride 8.7 ML IVP ONE (07:01)
[2018-11-16] MEDS ORDERED: methylPREDNISolone 125 MG/2 ML VIAL IVP SCH (08:00)
[2018-11-16] MEDS ORDERED: Aspirin 81 MG TAB.CHEW PO SCH (09:00)
[2018-11-16] MEDS ORDERED: Vancomycin (wt based) 1,000 MG VIAL IVPB SCH (09:00)
--- NOTE | 2018-11-16 09:55 | Pulmonology Consult Note ---
Date of Encounter: 11/16/18 Past Med Surg Social Fam HX - Past Medical History Medical history: CHF, COPD, coronary artery disease, renal disease, thyroid disease Additional medical history: thyroid cancer Psychiatric history: no psych history - Past Surgical History Surgical History: coronary bypass (CABG), pacemaker/AICD Additional surgical history: spinal, throat, defib - Social History Smoking Status: Current every day smoker Smokeless Tobacco Status: No Alcohol use: none Drug use: none Medications and Allergies Aspirin [Adult Aspirin] 81 mg PO DAILY 07/12/18 [History] DiphenhydraMINE [Benadryl] 25 mg PO Q8H PRN 07/12/18 [History] Levothyroxine Sodium [Levoxyl] 150 mcg PO QAM 07/12/18 [History] Metoprolol Succinate [Toprol Xl] 50 mg PO DAILY 07/12/18 [History] Sacubitril/Valsartan 24/26 mg [Entresto 24 mg-26 mg Tablet] 1 tab PO BID 07/12/18 [History] Torsemide [Demadex] 20 mg PO BID 07/12/18 [History] Albuterol Neb [Proventil Neb] 2.5 mg IH Q2H PRN inhsol 07/14/18 [Rx] levoFLOXacin [Levaquin] 500 mg PO DAILY #5 tablet 07/14/18 [Rx] Allergy/AdvReac Type Severity Reaction Status Date / Time dexamethasone Allergy "Ended up Verified 07/12/18 19:41 with a feeding tube." All Systems: The remainder of the systems were reviewed and are negative Physical Examination Vital Signs: Vital Signs, Last 4 Hours Temp Pulse Resp BP Pulse Ox 11/16/18 09:00 89 12 103/79 11/16/18 08:00 97.4 F L 89 12 116/70 11/16/18 07:55 17 111/73 76 11/16/18 07:00 90 18 104/71 11/16/18 06:00 90 16 103/71 Results - Laboratory Findings CBC and BMP: 11/16/18 05:05 11/16/18 05:05 ABG ABG pH 7.24 pH Units (7.32-7.45) L 11/16/18 01:32 ABG pCO2 64 mmHg (35-45) H 11/16/18 01:32 ABG pO2 59 mmHg (85-104) L 11/16/18 01:32 ABG O2 Saturation 84 % (95-98) L 11/16/18 01:32 PT/INR, D-dimer PT 15.4 Seconds (9.4-12.1) H 11/15/18 23:11 Abnormal lab findings: Abnormal lab results WBC 11.7 K/mcL (4.3-11.1) H 11/16/18 05:05 RBC 4.00 M/mcL (4.19-5.50) L 11/15/18 23:11 MCV 108.7 fL (83.0-100.0) H 11/16/18 05:05 MCH 33.4 pg (28.0-33.3) H 11/16/18 05:05 MCHC 30.7 g/dL (31.6-35.5) L 11/16/18 05:05 RDW 17.2 % (11.5-14.5) H 11/16/18 05:05 PT 15.4 Seconds (9.4-12.1) H 11/15/18 23:11 ABG pH 7.24 pH Units (7.32-7.45) L 11/16/18 01:32 ABG pCO2 64 mmHg (35-45) H 11/16/18 01:32 ABG pO2 59 mmHg (85-104) L 11/16/18 01:32 ABG Total CO2 29 mEq/L (20-26) H 11/16/18 01:32 ABG O2 Saturation 84 % (95-98) L 11/16/18 01:32 Sodium 129 mEq/L (136-145) L 11/16/18 05:05 Chloride 86 mEq/L (98-107) L 11/16/18 05:05 BUN 67 mg/dL (8-23) H 11/16/18 05:05 3.46 mg/dL (0.70-1.30) H 11/16/18 05:05 Est GFR ( Amer) 22 (> 60) L 11/16/18 05:05 Est GFR (Non-Af Amer) 18 (> 60) L 11/16/18 05:05 Glucose 148 mg/dL (70-105) H 11/16/18 05:05 POC Glucose 117 mg/dL (70-99) H 11/16/18 01:00 Calcium 8.2 mg/dL (8.6-10.3) L 11/16/18 05:05 Venous Ioniz Calcium 0.88 mmol/L (1.15-1.35) L 11/16/18 05:28 Phosphorus 6.2 mg/dL (2.7-4.5) H 11/15/18 23:04 2.4 mg/dL (0.3-1.0) H 11/16/18 05:05 118 Units/L (34-104) H 11/16/18 05:05 11.44 ng/mL (< 0.04) H* 11/16/18 05:05 6.3 g/dL (6.4-8.9) L 11/16/18 05:05 - Microbiology Findings Microbiology Findings: Microbiology, Last 48 Hours 11/16/18 04:00 Legionella Antigen - Final Urine,Clean Catch Streptococcus pneumoniae Antigen (M - Final 11/15/18 23:32 Blood Culture - Preliminary Peripheral Venipuncture Culture is incubating and being continuously monitored for growth. Final report to follow. 11/16/18 01:30 Blood Culture - Preliminary Peripheral Venipuncture Culture is incubating and being continuously monitored for growth. Final report to follow. - Clinical Findings Intake & Output: Intake & Output 11/15/18 11/16/18 11/16/18 23:59 07:59 15:59 Intake Total 418 / 1008 590 / 1008 Output Total 170 / 220 50 / 220 Balance 248 / 788 540 / 788 Weight 89 kg 84.3 kg Consult Discharge Plan - Plan Referrals: NONE,PCP [Primary Care Provider] -
--- NOTE | 2018-11-16 10:26 | Electrocardiograph Report ---
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
--- NOTE | 2018-11-16 10:30 | Electrocardiograph Report ---
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
--- NOTE | 2018-11-16 11:20 | Palliative - Consult Note ---
Date of Encounter: 11/16/18 Time of Encounter: 09:30 - Assessment and Plan (1) Heart failure with reduced ejection fraction Current Visit: Yes Status: Acute Assessment and plan: Echo showing EF 10-15 Qualifiers: Qualified Code(s): I50.20 - Unspecified systolic (congestive) heart failure (2) Palliative care encounter Current Visit: Yes Status: Acute Assessment and plan: Consulted to discuss goals of care with patient's . Called and left voicemail with request for return phone call on patient's phone to arrange meeting with Palliative care team. (3) Dyspnea Current Visit: Yes Status: Acute Assessment and plan: Patient is BIPAP dependent at this time. Qualifiers: Qualified Code(s): R06.00 - Dyspnea, unspecified (4) Acute kidney injury superimposed on CKD Current Visit: Yes Status: Acute Assessment and plan: Creatinine 3.38. (5) NSTEMI (non-ST elevated myocardial infarction) Current Visit: Yes Status: Acute Assessment and plan: Cardiology consulted. Patient has pacemaker. Patient was initially placed on heparin drip; however, experienced some bleeding, was discontinued. (6) Hypotension Current Visit: Yes Status: Acute Assessment and plan: BP 116/70 with pressor support. Qualifiers: Qualified Code(s): I95.9 - Hypotension, unspecified (7) Pneumonia Current Visit: Yes Status: Suspected Assessment and plan: Patient receiving IV Antibiotics per ICU team. Zosyn noted to be infusing during assessment. WBC elevated. CXR showed atelectasis. Qualifiers: Qualified Code(s): J18.9 - Pneumonia, unspecified organism (8) Goals of care, counseling/discussion Current Visit: Yes Status: Acute Assessment and plan: Met with patient and patient's from [id number] regarding goals of care. Patient's expressed we have already done more than patient would have wanted. Explained difference in DNRCCA/DNI and DNRCC, opted to stay DNRCCA/DNI at this time. reports this is not the first time she has been told by a hospital that the patient was dying, concern for denial of how sick patient actually is. Patient expressed desire to go home, coffee, food, and go down to smoke. reports she wants to follow his wishes. Patient remained on pressor support throughout conversation. Expressed patient's BP and Oxygen saturation is too low to sustain life. Explained risk of expiration during transit home and need to call 911 should that happen for return to hospital; verbalized understanding. Discussed Patient requiring pressor support, lack of oxygen, and having internal aicd/pacemaker concern for discharge. Offered patient to go home with hospice care; patient and refused. Explained need for oxygen support and not having at home, reports patient would not wear so she sent back to [facility] [place]. Explained risks associated with AICD and shocking at time of patient's off his heart stopping, reports it may help him stay alive longer with AICD. reports she wants to take him home, will sign AMA form. was wanting patient to sign AMA form, explained would not be legal in patient's current clinical status of making legal decisions and would require his to make decisions for him. 's plan for patient to leave the hospital AMA, without pressor support or oxygen, and without herring. wants pressor support stopped, herring removed, and AICD left activated. Reported results of conversation with ICU team. Notified Dr. Martines of results of lengthy conversation, as concern for patient's well being without adequate medication/nursing support and AICD remaining activated. Palliative-CN HPI - Data of Consult Patient: new to practice Consult date: 11/16/18 Requesting Physician: Blake Fan Primary Care Provider: PCP NONE - Consult Narrative Palliative Care/Comfort Measures: Palliative care Reason for consult: possible need for end of life care History of present illness: Mr. Santiago is a 63 year old male Arrived at [facility] as a transfer from [facility]. Patient PMH of COPD, CHF, CKD, HTN, CAD, Thyroid disease, and tobacco abuse. Past surgical hx: coronary bypass (CABG) and pacemaker/AICD. While admitted at [place], patient found to have a troponin of 15, Creatinine of 3.21, Lactic Acid 6, and CXR showed a larger pleural effusion. Decision was made to transfer patient to [facility] for further workup and treatment. Upon arrival to [facility], patient placed on stepdown unit, then found to be hypoxic and hypotensive, when a transfer to ICU was required. KUB, repeat CXR, and CVC line placement occurred. CODE STATUS was confirmed with patient and his as DNRCCA/DNI. Patients was contacted and urged to come to hospital due to overall poor prognosis. ECHO completed showing EF 10-15%. Troponins showed 15.24 initially, trending down, and heparin drip was initiated with cardiology consult, then discontinued due to noting blood. Continues to require pressor support. Palliative care consulted for possible need for end of life care. Patient lying in bed with eyes closed upon arrival for assessment. Patients swollen requiring assistance with opening. BiPAP in place. Patient non responsive to verbal/tactile stimulation. Patient responds to painful stimulation; however, unable to answer questions. Patient BiPAP dependent at this time, with oxygen saturation 80%. Patient attempting to pull heart mon itoring leads off of chest, not following redirection. Patients extremities are cool to touch, blankets in place. No family present at bedside. Spoke with patients primary RN at bedside. Patients had went home to rest, had came in overnight. Called patients and left voicemail with return contact information given. Will attempt to meet with patients today to discuss goals of car.e 1300: Patient lying in bed with head elevated upon arrival for assessment. Patient is alert and oriented to person, disoriented to time. Denies pain, dyspnea, nausea, and vomiting. Patient has removed his oxygen independently and requesting coffee and water. Patient's nose, fingertips, and lips showing bluish discoloration. CC: Blake Fan - Time Spent with Patient Time: Total time spent is greater than 50% in coordination of care (as documented) at patient's floor/unit and/or counseling patient: Past Med Surg Social Fam HX - Past Medical History Medical history: CHF, COPD, coronary artery disease, renal disease, thyroid disease Additional medical history: thyroid cancer Psychiatric history: no psych history - Past Surgical History Surgical History: coronary bypass (CABG), pacemaker/AICD Additional surgical history: spinal, throat, defib - Social History Smoking Status: Current every day smoker Smokeless Tobacco Status: No Alcohol use: none Drug use: none Medications and Allergies Aspirin [Adult Aspirin] 81 mg PO DAILY 07/12/18 [History] DiphenhydraMINE [Benadryl] 25 mg PO QAM 07/12/18 [History] Levothyroxine Sodium [Levoxyl] 150 mcg PO QAM 07/12/18 [History] Metoprolol Succinate [Toprol Xl] 50 mg PO DAILY 07/12/18 [History] Torsemide [Demadex] 20 mg PO QAM 07/12/18 [History] Albuterol Neb [Proventil Neb] 2.5 mg IH Q2H PRN inhsol 07/14/18 [Rx] ALPRAZolam [Xanax 1 MG Tablet] 1 mg PO HS 11/16/18 [History] Albuterol Sulfate [Albuterol Inhaler] 2 puff IH Q6H PRN 11/16/18 [History] Sacubitril/Valsartan 49/51 mg [Entresto 49 mg-51 mg Tablet] 1 tab PO BID 11/16/18 [History] Allergy/AdvReac Type Severity Reaction Status Date / Time dexamethasone Allergy "Ended up Verified 11/16/18 13:19 with a feeding tube." ROS unobtainable: due to mental status Palliative Care-Exam - Constitutional Vitals: Temp Pulse Resp BP Pulse Ox 97.5 F L 86 12 86/77 76 11/16/18 10:16 11/16/18 10:00 11/16/18 10:00 11/16/18 10:00 11/16/18 07:55 General appearance: Present: disheveled, no acute distress - Head Head Exam: Present: atraumatic, normal inspection - Eye Eye exam: Present: EOMI, periorbital swelling, PERRL, conjuntiva pink. Absent: normal appearance, periorbital tenderness - ENT ENT exam: Present: mucous membranes dry, normal external ear exam - Expanded ENT Exam Mouth Exam: Absent: drooling - Neck Neck exam: Present: normal inspection - Expanded Neck Exam Neck exam: Absent: anterior neck swelling, tenderness - Respiratory Respiratory exam: Present: accessory muscle use, rhonchi, wheezes. Absent: respiratory distress - Cardiovascular Cardiovascular exam: Present: +S1, +S2 - Expanded Cardiovascular Exam Peripheral pulses: 1+: Radial (L), Radial (R), Posterior Tibialis (L), Posterior Tibialis (R), Dorsalis Pedis (L) PM, Dorsalis Pedis (R) PM - GI/Abdominal Exam GI/Abdominal exam: Present: diminished bowel sounds - Rectal Rectal Exam: Present: deferred - Catheter Type: Urethral (Herring) - Extremities Exam Extremities exam: Present: normal inspection. Absent: calf tenderness, pedal edema, tenderness - Back Exam Back exam: Present: normal inspection. Absent: rash noted, tenderness - Neurological Exam Neurological exam: Present: altered. Absent: reflexes normal, facial droop - Expanded Neurological Exam Patient oriented to: Present: person Upper motor neuron: Babinski sign: Abnormal Left, Abnormal Right Coma Scale Eye Opening: To Pain Coma Scale Motor Response: Withdraws to Pain Coma Scale Verbal Response: None Coma Scale Total: 7 - Psychiatric Psychiatric exam: Present: flat affect - Skin Skin exam: Present: dry, intact, pallor Internal Medicine - CN: Reslt - Labs CBC & Chem 7: 11/16/18 05:05 11/16/18 05:05 Labs: Short CBC 11/15/18 11/16/18 Range/Units 23:11 05:05 WBC 8.9 11.7 H (4.3-11.1) K/mcL Hgb 13.5 14.6 (12.9-16.9) g/dL Hct 42.5 47.5 (37.5-50.1) % Plt Count 220 243 (140-400) K/mcL BMP 11/16/18 11/16/18 01:30 05:05 Sodium 130 L 129 L Potassium 4.2 4.7 Chloride 88 L 86 L Carbon Dioxide 27 26 BUN 63 H 67 H Creatinine 3.38 H 3.46 H Glucose 136 H 148 H Calcium 7.7 L 8.2 L Cardiac Enzymes 11/15/18 11/16/18 Range/Units 23:15 05:05 Troponin I 15.24 H* 11.44 H* (< 0.04) ng/mL Liver Function 11/16/18 11/16/18 Range/Units 01:30 05:05 Total Bilirubin 1.9 H 2.4 H (0.3-1.0) mg/dL AST 33 32 (13-39) Units/L ALT 14 15 (7-52) Units/L Alkaline Phosphatase 117 H 118 H (34-104) Units/L Albumin 3.7 3.7 (3.5-5.7) g/dL - ABG Interpretation ABG results: ABG ABG pH 7.24 pH Units (7.32-7.45) L 11/16/18 01:32 ABG pCO2 64 mmHg (35-45) H 11/16/18 01:32 ABG pO2 59 mmHg (85-104) L 11/16/18 01:32 ABG O2 Saturation 84 % (95-98) L 11/16/18 01:32 PT/INR, D-dimer PT 15.4 Seconds (9.4-12.1) H 11/15/18 23:11 - Impressions Impressions KUB X-Ray 11/16/18 00:21 IMPRESSION: Right femoral central venous catheter terminates over a position compatible with right common femoral/external iliac vein termination. Nonobstructive bowel gas pattern. D/ / Christian Encarnacion / Christian Encarnacion Interpreting Provider: Christian Encarnacion Chest X-Ray 11/16/18 00:46 IMPRESSION: Large right pleural effusion with right lung atelectasis. Cannot exclude superimposed pneumonia or aspiration within atelectatic lung. Retrocardiac opacity could reflect atelectasis, aspiration or pneumonia. D/ / Christian Encarnacion / Christian Encarnacion Interpreting Provider: Christian Encarnacion Echocardiogram Limited Views 11/16/18 06:30 Impressions: LVEF 10-15%. Moderately dilated left ventricle. Severe global left ventricular systolic dysfunction. There is no LV thrombus. Dilated and hypokinetic right ventricle. A device lead was visualized in the right atrium and right ventricle. Left Ventricular Wall Motion: Rest Echo Findings The apex, apical inferior, mid inferior, basal inferior, apical anterior, mid anterior, basal anterior, apical septal, mid inferior septal, basal inferior septal, apical lateral, mid anterior lateral, basal anterior lateral, mid anterior septal, mid inferior lateral, basal anterior septal and basal inferior lateral khan were hypokinetic. Findings: Study Quality * Technically adequate exam. ECG Findings * Sinus rhythm with BBB. Left Ventricle * LVEF 10-15%. * Moderately dilated left ventricle. * Severe global left ventricular systolic dysfunction. * There is no LV thrombus. * false tendon noted in the LV apex, which is a normal variant. * False tendon noted in the LV apex, which is a normal variant. Right Ventricle * Dilated and hypokinetic right ventricle. Aorta * Normally sized aortic root. Pericardium * The pericardium appears normal. Device lead * A device lead was visualized in the right atrium and right ventricle. Consult Discharge Plan - Plan Referrals: NONE,PCP [Primary Care Provider] - Palliative Quality Palliative Quality: Screen for Code Status: NA, Screen for Goals of Care: NA, Screen for Pain: Yes (nonverbal signs of discomfort present.), If Pain Regimen Started, Initiate Bowel Regimen: NA, Screen for Nausea/Vomitting: NA Code Status: 11/15/18 23:04 Resuscitation Status: Active [RES] Routine Comment: Resuscitation Status: [id number] Palliative Scale - Palliative Performance Scale How ambulatory is this patient?: Totally bed bound What is patient's level of activity and evidence of disease?: Unable to do any activity, Extensive disease How much self-care assistance does patient require?: Mainly assistance How much oral intake does the patient have?: Minimal to sips What is this patient's level of consciousness?: Drowsy or coma with or without confusion Palliative Performance Score: 10 %
[2018-11-16] MEDS ORDERED: Albuterol 2.5 MG/3 ML NEBULIZER IH PRN ×2 (14:18→18:31)
--- NOTE | 2018-11-16 14:30 | Discharge Summary ---
<Refugio Mac - Last Filed: 11/16/18 16:37> Orders not resulted at time of discharge: Pending orders 11/15/18 23:07 Culture,Sputum with Gram Stain [RM] Routine 11/15/18 23:32 Culture,Blood [BC] Stat 11/16/18 11:15 Troponin I Q6H 11/17/18 04:00 Vancomycin,Random AM 0400 Date of Encounter: 11/16/18 Time of Encounter: 14:37 - Discharge Diagnosis (1) Acute respiratory failure Priority: Primary Status: Acute Qualifiers: Respiratory failure complication: hypoxia and hypercapnia Qualified Code(s): J96.01 - Acute respiratory failure with hypoxia; J96.02 - Acute respiratory failure with hypercapnia (2) Heart failure with reduced ejection fraction Priority: Primary Status: Acute Qualifiers: Heart failure chronicity: unspecified Qualified Code(s): I50.20 - Unspecified systolic (congestive) heart failure (3) Hypotension Priority: Secondary Status: Acute Qualifiers: Hypotension type: unspecified hypotension type Qualified Code(s): I95.9 - Hypotension, unspecified (4) Lactic acidosis Priority: Secondary Status: Acute (5) NSTEMI (non-ST elevated myocardial infarction) Priority: Secondary Status: Acute - Discharge Medications Prescriptions: Continued Aspirin [Adult Aspirin] 81 mg PO DAILY DiphenhydraMINE [Benadryl] 25 mg PO QAM Levothyroxine Sodium [Levoxyl] 150 mcg PO QAM Torsemide [Demadex] 20 mg PO QAM Albuterol Neb [Proventil Neb] 2.5 mg IH Q2H PRN inhsol PRN Reason: Shortness Of Breath/Wheezing ALPRAZolam [Xanax 1 MG Tablet] 1 mg PO HS Sacubitril/Valsartan 49/51 mg [Entresto 49 mg-51 mg Tablet] 1 tab PO BID Albuterol Sulfate [Albuterol Inhaler] 2 puff IH Q6H PRN PRN Reason: Shortness Of Breath Discontinued Metoprolol Succinate [Toprol Xl] 50 mg PO DAILY Home Medications: Aspirin [Adult Aspirin] 81 mg PO DAILY 07/12/18 [History] DiphenhydraMINE [Benadryl] 25 mg PO QAM 07/12/18 [History] Levothyroxine Sodium [Levoxyl] 150 mcg PO QAM 07/12/18 [History] Torsemide [Demadex] 20 mg PO QAM 07/12/18 [History] Albuterol Neb [Proventil Neb] 2.5 mg IH Q2H PRN inhsol 07/14/18 [Rx] ALPRAZolam [Xanax 1 MG Tablet] 1 mg PO HS 11/16/18 [History] Albuterol Sulfate [Albuterol Inhaler] 2 puff IH Q6H PRN 11/16/18 [History] Sacubitril/Valsartan 49/51 mg [Entresto 49 mg-51 mg Tablet] 1 tab PO BID 11/16/18 [History] Allergies/Adverse Reactions: Allergy/AdvReac Type Severity Reaction Status Date / Time dexamethasone Allergy "Ended up Verified 11/16/18 13:19 with a feeding tube." Labs on day of discharge: Labs from last 24 hours 11/16/18 11/16/18 11/16/18 05:28 05:05 05:05 WBC RBC Hgb Hct MCV MCH MCHC RDW Plt Count MPV PT INR Heparin Anti-Xa, Unfract 0.61 Sample Site ABG pH ABG pCO2 ABG pO2 ABG HCO3 ABG Total CO2 ABG O2 Saturation ABG Base Excess Chance Test O2 Delivery Device Inspired O2 Sodium Potassium Chloride Carbon Dioxide BUN Creatinine Est GFR ( Amer) Est GFR (Non-Af Amer) BUN/Creatinine Ratio Glucose POC Glucose Calculated Osmolality Lactic Acid Calcium Venous Ioniz Calcium 0.88 L Phosphorus Magnesium Total Bilirubin AST ALT Alkaline Phosphatase Creatine Kinase Troponin I Serum Total Protein Albumin Globulin Albumin/Globulin Ratio Urine Creatinine Urine Sodium Random Vancomycin 15 Chlamy pneumoniae PCR Adenovirus (PCR) B. pertussis DNA (PCR) B.parapertussis DNA PCR Coronavirus OC43 (PCR) Coronavirus HKU1 (PCR) Coronavirus 229E (PCR) Coronavirus NL63 (PCR) Human Metapneumovir PCR Influenza A (H1) PCR Influ A (H1N1/09) PCR Influenza A (H3) PCR Influenza A Untype (PCR) Influenza Type B (PCR) M.pneumoniae DNA (PCR) Parainfluenza 1 (PCR) Parainfluenza 2 (PCR) Parainfluenza 3 (PCR) Parainfluenza 4 (PCR) RSV (PCR) Entero/Rhino (PCR) 11/16/18 11/16/18 11/16/18 05:05 05:05 04:08 WBC 11.7 H RBC 4.37 Hgb 14.6 Hct 47.5 MCV 108.7 H MCH 33.4 H MCHC 30.7 L RDW 17.2 H Plt Count 243 MPV 10.2 PT INR Heparin Anti-Xa, Unfract Sample Site ABG pH ABG pCO2 ABG pO2 ABG HCO3 ABG Total CO2 ABG O2 Saturation ABG Base Excess Chance Test O2 Delivery Device Inspired O2 Sodium 129 L Potassium 4.7 Chloride 86 L Carbon Dioxide 26 BUN 67 H Creatinine 3.46 H Est GFR ( Amer) 22 L Est GFR (Non-Af Amer) 18 L BUN/Creatinine Ratio 19 Glucose 148 H POC Glucose Calculated Osmolality 290 Lactic Acid Calcium 8.2 L Venous Ioniz Calcium Phosphorus Magnesium Total Bilirubin 2.4 H AST 32 ALT 15 Alkaline Phosphatase 118 H Creatine Kinase Troponin I 11.44 H* Serum Total Protein 6.3 L Albumin 3.7 Globulin 2.6 Albumin/Globulin Ratio 1.4 Urine Creatinine Urine Sodium Random Vancomycin Chlamy pneumoniae PCR Not Detected Adenovirus (PCR) Not Detected B. pertussis DNA (PCR) Not Detected B.parapertussis DNA PCR Not Detected Coronavirus OC43 (PCR) Not Detected Coronavirus HKU1 (PCR) Not Detected Coronavirus 229E (PCR) Not Detected Coronavirus NL63 (PCR) Not Detected Human Metapneumovir PCR Not Detected Influenza A (H1) PCR Not Detected Influ A (H1N1/09) PCR Not Detected Influenza A (H3) PCR Not Detected Influenza A Untype (PCR) Not Detected Influenza Type B (PCR) Not Detected M.pneumoniae DNA (PCR) Not Detected Parainfluenza 1 (PCR) Not Detected Parainfluenza 2 (PCR) Not Detected Parainfluenza 3 (PCR) Not Detected Parainfluenza 4 (PCR) Not Detected RSV (PCR) Not Detected Entero/Rhino (PCR) Not Detected 11/16/18 11/16/18 11/16/18 04:00 01:32 01:30 WBC RBC Hgb Hct MCV MCH MCHC RDW Plt Count MPV PT INR Heparin Anti-Xa, Unfract Sample Site L Radial ABG pH 7.24 L ABG pCO2 64 H ABG pO2 59 L ABG HCO3 27 ABG Total CO2 29 H ABG O2 Saturation 84 L ABG Base Excess -2 Chance Test N/A O2 Delivery Device NRB Inspired O2 15.0 Sodium 130 L Potassium 4.2 Chloride 88 L Carbon Dioxide 27 BUN 63 H Creatinine 3.38 H Est GFR ( Amer) 22 L Est GFR (Non-Af Amer) 18 L BUN/Creatinine Ratio 19 Glucose 136 H POC Glucose Calculated Osmolality 290 Lactic Acid Calcium 7.7 L Venous Ioniz Calcium Phosphorus Magnesium Total Bilirubin 1.9 H AST 33 ALT 14 Alkaline Phosphatase 117 H Creatine Kinase Troponin I Serum Total Protein 6.7 Albumin 3.7 Globulin 3.0 Albumin/Globulin Ratio 1.2 Urine Creatinine 175 Urine Sodium 24.0 Random Vancomycin Chlamy pneumoniae PCR Adenovirus (PCR) B. pertussis DNA (PCR) B.parapertussis DNA PCR Coronavirus OC43 (PCR) Coronavirus HKU1 (PCR) Coronavirus 229E (PCR) Coronavirus NL63 (PCR) Human Metapneumovir PCR Influenza A (H1) PCR Influ A (H1N1/09) PCR Influenza A (H3) PCR Influenza A Untype (PCR) Influenza Type B (PCR) M.pneumoniae DNA (PCR) Parainfluenza 1 (PCR) Parainfluenza 2 (PCR) Parainfluenza 3 (PCR) Parainfluenza 4 (PCR) RSV (PCR) Entero/Rhino (PCR) 11/16/18 11/15/18 11/15/18 01:00 23:32 23:15 WBC RBC Hgb Hct MCV MCH MCHC RDW Plt Count MPV PT INR Heparin Anti-Xa, Unfract Sample Site ABG pH ABG pCO2 ABG pO2 ABG HCO3 ABG Total CO2 ABG O2 Saturation ABG Base Excess Chance Test O2 Delivery Device Inspired O2 Sodium Potassium Chloride Carbon Dioxide BUN Creatinine Est GFR ( Amer) Est GFR (Non-Af Amer) BUN/Creatinine Ratio Glucose POC Glucose 117 H Calculated Osmolality Lactic Acid 2.0 Calcium Venous Ioniz Calcium Phosphorus Magnesium Total Bilirubin AST ALT Alkaline Phosphatase Creatine Kinase Troponin I 15.24 H* Serum Total Protein Albumin Globulin Albumin/Globulin Ratio Urine Creatinine Urine Sodium Random Vancomycin Chlamy pneumoniae PCR Adenovirus (PCR) B. pertussis DNA (PCR) B.parapertussis DNA PCR Coronavirus OC43 (PCR) Coronavirus HKU1 (PCR) Coronavirus 229E (PCR) Coronavirus NL63 (PCR) Human Metapneumovir PCR Influenza A (H1) PCR Influ A (H1N1/09) PCR Influenza A (H3) PCR Influenza A Untype (PCR) Influenza Type B (PCR) M.pneumoniae DNA (PCR) Parainfluenza 1 (PCR) Parainfluenza 2 (PCR) Parainfluenza 3 (PCR) Parainfluenza 4 (PCR) RSV (PCR) Entero/Rhino (PCR) 11/15/18 11/15/18 11/15/18 23:11 23:11 23:04 WBC 8.9 RBC 4.00 L Hgb 13.5 Hct 42.5 MCV 106.3 H MCH 33.8 H MCHC 31.8 RDW 17.4 H Plt Count 220 MPV 10.1 PT 15.4 H INR 1.4 Heparin Anti-Xa, Unfract 0.54 Sample Site ABG pH ABG pCO2 ABG pO2 ABG HCO3 ABG Total CO2 ABG O2 Saturation ABG Base Excess Chance Test O2 Delivery Device Inspired O2 Sodium Potassium Chloride Carbon Dioxide BUN Creatinine Est GFR ( Amer) Est GFR (Non-Af Amer) BUN/Creatinine Ratio Glucose POC Glucose Calculated Osmolality Lactic Acid Calcium Venous Ioniz Calcium Phosphorus 6.2 H Magnesium 2.3 Total Bilirubin AST ALT Alkaline Phosphatase Creatine Kinase 147 Troponin I Serum Total Protein Albumin Globulin Albumin/Globulin Ratio Urine Creatinine Urine Sodium Random Vancomycin Chlamy pneumoniae PCR Adenovirus (PCR) B. pertussis DNA (PCR) B.parapertussis DNA PCR Coronavirus OC43 (PCR) Coronavirus HKU1 (PCR) Coronavirus 229E (PCR) Coronavirus NL63 (PCR) Human Metapneumovir PCR Influenza A (H1) PCR Influ A (H1N1/09) PCR Influenza A (H3) PCR Influenza A Untype (PCR) Influenza Type B (PCR) M.pneumoniae DNA (PCR) Parainfluenza 1 (PCR) Parainfluenza 2 (PCR) Parainfluenza 3 (PCR) Parainfluenza 4 (PCR) RSV (PCR) Entero/Rhino (PCR) Preliminary micro results at discharge 11/15/18 23:32 Blood Culture - Preliminary Peripheral Venipuncture Culture is incubating and being continuously monitored for growth. Final report to follow. 11/16/18 01:30 Blood Culture - Preliminary Peripheral Venipuncture Culture is incubating and being continuously monitored for growth. Final report to follow. - Impressions ITS Impressions KUB X-Ray 11/16/18 00:21 IMPRESSION: Right femoral central venous catheter terminates over a position compatible with right common femoral/external iliac vein termination. Nonobstructive bowel gas pattern. D/ / Christian Encarnacion / Christian Encarnacion Interpreting Provider: Christian Encarnacion Chest X-Ray 11/16/18 00:46 IMPRESSION: Large right pleural effusion with right lung atelectasis. Cannot exclude superimposed pneumonia or aspiration within atelectatic lung. Retrocardiac opacity could reflect atelectasis, aspiration or pneumonia. D/ / Christian Encarnacion / Christian Encarnacion Interpreting Provider: Christian Encarnacion Echocardiogram Limited Views 11/16/18 06:30 Impressions: LVEF 10-15%. Moderately dilated left ventricle. Severe global left ventricular systolic dysfunction. There is no LV thrombus. Dilated and hypokinetic right ventricle. A device lead was visualized in the right atrium and right ventricle. Left Ventricular Wall Motion: Rest Echo Findings The apex, apical inferior, mid inferior, basal inferior, apical anterior, mid anterior, basal anterior, apical septal, mid inferior septal, basal inferior septal, apical lateral, mid anterior lateral, basal anterior lateral, mid anterior septal, mid inferior lateral, basal anterior septal and basal inferior lateral khan were hypokinetic. Findings: Study Quality * Technically adequate exam. ECG Findings * Sinus rhythm with BBB. Left Ventricle * LVEF 10-15%. * Moderately dilated left ventricle. * Severe global left ventricular systolic dysfunction. * There is no LV thrombus. * false tendon noted in the LV apex, which is a normal variant. * False tendon noted in the LV apex, which is a normal variant. Right Ventricle * Dilated and hypokinetic right ventricle. Aorta * Normally sized aortic root. Pericardium * The pericardium appears normal. Device lead * A device lead was visualized in the right atrium and right ventricle. Date of admission: 11/15/18 22:42 Primary care physician: PCP NONE Consults: 11/15/18 23:26 Consult to Nutrition [CONS] Routine Comment: Consulting Provider: NUTRITION Reason for Dietary Consult: MST Score Consult to Fiber Optic Splicer [CONS] Routine Reason for SW Consult: discharge needs 11/16/18 02:26 Consult to Critical Care [CONS] Routine Consulting Provider: Pulm Crit Care & Sleep Lorena Reason for Consult: ICU management Call Completed: No Consult to Palliative Care [CONS] Routine Comment: Consulting Provider: Palliative Care Lorena Reason for Consult: possible need for end of life care Call Completed: No Discharging clinician: Refugio Mac Anticipated date of discharge: 11/16/18 (Leaving AMA) - Patient Status Disposition: Left Against Medical Advice Condition: Critical Overall status at discharge: patient is not back to baseline - Discharge Instructions Follow Up With: NONE,PCP [Primary Care Provider] - Additional Instructions: You have decided to leave AGAINST MEDICAL ADVICE. It is been discussed with you and your who is your healthcare power of tax attorney, that he would like to leave today AGAINST MEDICAL ADVICE. You are aware that the risks of going home are irregular heart rhythm, firing of your ICD, worsening of shortness of breath and fluid on her lungs and extremities as well as . If you become concerned or you have worsening symptoms please call 911 or go to the ER immediately. - Diet and Activity Activity: other Diet: low fat, low cholesterol, low salt diet - Hospital Course Hospital course: Mr. Santiago is a 63 year old male with past medical history significant for COPD, CHF, chronic kidney disease, hypertension and tobacco use. Patient was transferred to our hospital from [facility] with reports of multiple falls over the last few days per . Patient's is primary historian, patient is unable to provide much of a history. Per his , over the past 8 months he has had a significant health decline with over 30 pounds of weight gain due to water retention. On 11/16/2018, patient was taken to [facility] for recurrent falls and change in mental status. While at [facility], the patient declared that he was a DNR CCA DO NOT INTUBATE, this was confirmed with by his power of tax attorney, his on arrival. Patient had a troponin of 15 with a creatinine of 3.21, lactic acidosis of 6. Chest x-ray showed a large pleural effusion. He was given 4 L bolus. EKG on arrival showed inverted T waves suggestive of ischemia. On his arrival to [place], a central venous line was placed secondary to hypotension. As patient declared that he was a DNR CCA DNI, the patient was not intubated, however has remained hypoxic, initially placed on BiPAP. He states at this point he does not want BiPAP and was moved to oxygen. On arrival to the ICU, patient was placed on levophed for pressor support. Chest x-ray shows concern for large right pleural effusion as well as concern for pneumonia, he was started on Levaquin, vancomycin and Zosyn. Echocardiogram was performed with known history of decreased ejection fracture in July 2018 which showed ejection fraction of 10-15%, echocardiogram performed on 11/16/2018 shows ejection fraction of 9%. I had discussion with the , who states that she will be in around noon. She reiterates the patient's desire to remain DNR CCA, DNI. Palliative care was consulted, for palliative measures vs hospice care. At 1220, patient capacity evaluation showed the patient to be alert to person, place and understanding the consequences of leaving and stopping medical therapy. They stated they would like to stop all medication at this time becoming a DNR CC at 1410, and would like to leave AGAINST MEDICAL ADVICE. The , who is his healthcare power of tax attorney, reiterates that the patient is going to be leaving [facility]. I did discuss with them as well as the palliative care team at length including the palliative care physician, nurse practitioner and my attending discussed the risks of leaving AGAINST MEDICAL ADVICE as he is currently on pressor support as well as antibiotics as well as his significant hypoxia with a pulse ox of 50%. Patient is also adamant that he does not want his ICD turned off by cardiology prior to leaving. They are aware of the risk of being shocked by ICD as the patient clinical picture continues to decline. I explained that the risks include , being shocked by his ICD, further symptoms such as chest pain, CHF, COPD and that the patient might not be able to survive coming off the medications prior to leaving to the hospital. His states they will be leaving AGAINST MEDICAL ADVICE at this time. [facility] paperwork was signed at 1425. At this point in time, the medications will be stopped, central line was removed and the patient will leave [facility]. At 1525, the patient was deemed to have decisional incapacity. Patient was alert to person, place but could not voice understanding of the consequences of leaving the hospital. During this evaluation, lead ICU nurse, patients nurse, and my attending, Dr. Bourgeois were in attendance with patients in the room. During this evaluation patient continues to go in and out of consciousness. 11/16/18 at 1533: consulted with Lorena shelley, Vonda Galindo and Angeles Overton stating that "capacity is determined at the present time, due to him being deemed to not have capacity at the present state based on him not being able to answer that he could before leaving the parking lot." They have given their approval that the patient is to be placed on a decisional incapacity hold. Decisional incapacity order was placed. Patient will be transferred to . - Time Spent with Patient Total time spent providing and/or coordinating discharge services: Greater than 30 minutes Physical Examination Vital Signs: Vital Signs, Last 4 Hours Pulse Resp BP Pulse Ox 11/16/18 13:00 90 12 99/68 76 11/16/18 12:00 92 12 98/35 76 11/16/18 11:00 86 12 127/64 76 General appearance: agitated, appears uncomfortable Eyes: nonicteric ENT: oropharynx dry Effort: very labored Auscultation: bilateral: diminished breath sounds, rales Cardiovascular: regular rate and rhythm Gastrointestinal: normoactive bowel sounds, non-tender, non-distended Extremities: cyanosis (at the nose), other (2+ pitting edema) pupils equal and round, unable to assess due to mental status <Keyla Bourgeois S - Last Filed: 11/16/18 17:02> Orders not resulted at time of discharge: Pending orders 11/15/18 23:07 Culture,Sputum with Gram Stain [RM] Routine 11/15/18 23:32 Culture,Blood [BC] Stat 11/17/18 04:00 Vancomycin,Random AM 0400 Date of Encounter: 11/16/18 Labs on day of discharge: Labs from last 24 hours 11/16/18 11/16/18 11/16/18 05:28 05:05 05:05 WBC RBC Hgb Hct MCV MCH MCHC RDW Plt Count MPV PT INR Heparin Anti-Xa, Unfract 0.61 Sample Site ABG pH ABG pCO2 ABG pO2 ABG HCO3 ABG Total CO2 ABG O2 Saturation ABG Base Excess Chance Test O2 Delivery Device Inspired O2 Sodium Potassium Chloride Carbon Dioxide BUN Creatinine Est GFR ( Amer) Est GFR (Non-Af Amer) BUN/Creatinine Ratio Glucose POC Glucose Calculated Osmolality Lactic Acid Calcium Venous Ioniz Calcium 0.88 L Phosphorus Magnesium Total Bilirubin AST ALT Alkaline Phosphatase Creatine Kinase Troponin I Serum Total Protein Albumin Globulin Albumin/Globulin Ratio Urine Creatinine Urine Sodium Random Vancomycin 15 Chlamy pneumoniae PCR Adenovirus (PCR) B. pertussis DNA (PCR) B.parapertussis DNA PCR Coronavirus OC43 (PCR) Coronavirus HKU1 (PCR) Coronavirus 229E (PCR) Coronavirus NL63 (PCR) Human Metapneumovir PCR Influenza A (H1) PCR Influ A (H1N1/09) PCR Influenza A (H3) PCR Influenza A Untype (PCR) Influenza Type B (PCR) M.pneumoniae DNA (PCR) Parainfluenza 1 (PCR) Parainfluenza 2 (PCR) Parainfluenza 3 (PCR) Parainfluenza 4 (PCR) RSV (PCR) Entero/Rhino (PCR) 11/16/18 11/16/18 11/16/18 05:05 05:05 04:08 WBC 11.7 H RBC 4.37 Hgb 14.6 Hct 47.5 MCV 108.7 H MCH 33.4 H MCHC 30.7 L RDW 17.2 H Plt Count 243 MPV 10.2 PT INR Heparin Anti-Xa, Unfract Sample Site ABG pH ABG pCO2 ABG pO2 ABG HCO3 ABG Total CO2 ABG O2 Saturation ABG Base Excess Chance Test O2 Delivery Device Inspired O2 Sodium 129 L Potassium 4.7 Chloride 86 L Carbon Dioxide 26 BUN 67 H Creatinine 3.46 H Est GFR ( Amer) 22 L Est GFR (Non-Af Amer) 18 L BUN/Creatinine Ratio 19 Glucose 148 H POC Glucose Calculated Osmolality 290 Lactic Acid Calcium 8.2 L Venous Ioniz Calcium Phosphorus Magnesium Total Bilirubin 2.4 H AST 32 ALT 15 Alkaline Phosphatase 118 H Creatine Kinase Troponin I 11.44 H* Serum Total Protein 6.3 L Albumin 3.7 Globulin 2.6 Albumin/Globulin Ratio 1.4 Urine Creatinine Urine Sodium Random Vancomycin Chlamy pneumoniae PCR Not Detected Adenovirus (PCR) Not Detected B. pertussis DNA (PCR) Not Detected B.parapertussis DNA PCR Not Detected Coronavirus OC43 (PCR) Not Detected Coronavirus HKU1 (PCR) Not Detected Coronavirus 229E (PCR) Not Detected Coronavirus NL63 (PCR) Not Detected Human Metapneumovir PCR Not Detected Influenza A (H1) PCR Not Detected Influ A (H1N1/09) PCR Not Detected Influenza A (H3) PCR Not Detected Influenza A Untype (PCR) Not Detected Influenza Type B (PCR) Not Detected M.pneumoniae DNA (PCR) Not Detected Parainfluenza 1 (PCR) Not Detected Parainfluenza 2 (PCR) Not Detected Parainfluenza 3 (PCR) Not Detected Parainfluenza 4 (PCR) Not Detected RSV (PCR) Not Detected Entero/Rhino (PCR) Not Detected 11/16/18 11/16/18 11/16/18 04:00 01:32 01:30 WBC RBC Hgb Hct MCV MCH MCHC RDW Plt Count MPV PT INR Heparin Anti-Xa, Unfract Sample Site L Radial ABG pH 7.24 L ABG pCO2 64 H ABG pO2 59 L ABG HCO3 27 ABG Total CO2 29 H ABG O2 Saturation 84 L ABG Base Excess -2 Chance Test N/A O2 Delivery Device NRB Inspired O2 15.0 Sodium 130 L Potassium 4.2 Chloride 88 L Carbon Dioxide 27 BUN 63 H Creatinine 3.38 H Est GFR ( Amer) 22 L Est GFR (Non-Af Amer) 18 L BUN/Creatinine Ratio 19 Glucose 136 H POC Glucose Calculated Osmolality 290 Lactic Acid Calcium 7.7 L Venous Ioniz Calcium Phosphorus Magnesium Total Bilirubin 1.9 H AST 33 ALT 14 Alkaline Phosphatase 117 H Creatine Kinase Troponin I Serum Total Protein 6.7 Albumin 3.7 Globulin 3.0 Albumin/Globulin Ratio 1.2 Urine Creatinine 175 Urine Sodium 24.0 Random Vancomycin Chlamy pneumoniae PCR Adenovirus (PCR) B. pertussis DNA (PCR) B.parapertussis DNA PCR Coronavirus OC43 (PCR) Coronavirus HKU1 (PCR) Coronavirus 229E (PCR) Coronavirus NL63 (PCR) Human Metapneumovir PCR Influenza A (H1) PCR Influ A (H1N1/09) PCR Influenza A (H3) PCR Influenza A Untype (PCR) Influenza Type B (PCR) M.pneumoniae DNA (PCR) Parainfluenza 1 (PCR) Parainfluenza 2 (PCR) Parainfluenza 3 (PCR) Parainfluenza 4 (PCR) RSV (PCR) Entero/Rhino (PCR) 11/16/18 11/15/18 11/15/18 01:00 23:32 23:15 WBC RBC Hgb Hct MCV MCH MCHC RDW Plt Count MPV PT INR Heparin Anti-Xa, Unfract Sample Site ABG pH ABG pCO2 ABG pO2 ABG HCO3 ABG Total CO2 ABG O2 Saturation ABG Base Excess Chance Test O2 Delivery Device Inspired O2 Sodium Potassium Chloride Carbon Dioxide BUN Creatinine Est GFR ( Amer) Est GFR (Non-Af Amer) BUN/Creatinine Ratio Glucose POC Glucose 117 H Calculated Osmolality Lactic Acid 2.0 Calcium Venous Ioniz Calcium Phosphorus Magnesium Total Bilirubin AST ALT Alkaline Phosphatase Creatine Kinase Troponin I 15.24 H* Serum Total Protein Albumin Globulin Albumin/Globulin Ratio Urine Creatinine Urine Sodium Random Vancomycin Chlamy pneumoniae PCR Adenovirus (PCR) B. pertussis DNA (PCR) B.parapertussis DNA PCR Coronavirus OC43 (PCR) Coronavirus HKU1 (PCR) Coronavirus 229E (PCR) Coronavirus NL63 (PCR) Human Metapneumovir PCR Influenza A (H1) PCR Influ A (H1N1/09) PCR Influenza A (H3) PCR Influenza A Untype (PCR) Influenza Type B (PCR) M.pneumoniae DNA (PCR) Parainfluenza 1 (PCR) Parainfluenza 2 (PCR) Parainfluenza 3 (PCR) Parainfluenza 4 (PCR) RSV (PCR) Entero/Rhino (PCR) 11/15/18 11/15/18 11/15/18 23:11 23:11 23:04 WBC 8.9 RBC 4.00 L Hgb 13.5 Hct 42.5 MCV 106.3 H MCH 33.8 H MCHC 31.8 RDW 17.4 H Plt Count 220 MPV 10.1 PT 15.4 H INR 1.4 Heparin Anti-Xa, Unfract 0.54 Sample Site ABG pH ABG pCO2 ABG pO2 ABG HCO3 ABG Total CO2 ABG O2 Saturation ABG Base Excess Chance Test O2 Delivery Device Inspired O2 Sodium Potassium Chloride Carbon Dioxide BUN Creatinine Est GFR ( Amer) Est GFR (Non-Af Amer) BUN/Creatinine Ratio Glucose POC Glucose Calculated Osmolality Lactic Acid Calcium Venous Ioniz Calcium Phosphorus 6.2 H Magnesium 2.3 Total Bilirubin AST ALT Alkaline Phosphatase Creatine Kinase 147 Troponin I Serum Total Protein Albumin Globulin Albumin/Globulin Ratio Urine Creatinine Urine Sodium Random Vancomycin Chlamy pneumoniae PCR Adenovirus (PCR) B. pertussis DNA (PCR) B.parapertussis DNA PCR Coronavirus OC43 (PCR) Coronavirus HKU1 (PCR) Coronavirus 229E (PCR) Coronavirus NL63 (PCR) Human Metapneumovir PCR Influenza A (H1) PCR Influ A (H1N1/09) PCR Influenza A (H3) PCR Influenza A Untype (PCR) Influenza Type B (PCR) M.pneumoniae DNA (PCR) Parainfluenza 1 (PCR) Parainfluenza 2 (PCR) Parainfluenza 3 (PCR) Parainfluenza 4 (PCR) RSV (PCR) Entero/Rhino (PCR) Preliminary micro results at discharge 11/15/18 23:32 Blood Culture - Preliminary Peripheral Venipuncture Culture is incubating and being continuously monitored for growth. Final report to follow. 11/16/18 01:30 Blood Culture - Preliminary Peripheral Venipuncture Culture is incubating and being continuously monitored for growth. Final report to follow. - Impressions ITS Impressions KUB X-Ray 11/16/18 00:21 IMPRESSION: Right femoral central venous catheter terminates over a position compatible with right common femoral/external iliac vein termination. Nonobstructive bowel gas pattern. D/ / Christian Encarnacion / Christian Encarnacion Interpreting Provider: Christian Encarnacion Chest X-Ray 11/16/18 00:46 IMPRESSION: Large right pleural effusion with right lung atelectasis. Cannot exclude superimposed pneumonia or aspiration within atelectatic lung. Retrocardiac opacity could reflect atelectasis, aspiration or pneumonia. D/ / Christian Encarnacion / Christian Encarnacion Interpreting Provider: Christian Encarnacion Echocardiogram Limited Views 11/16/18 06:30 Impressions: LVEF 10-15%. Moderately dilated left ventricle. Severe global left ventricular systolic dysfunction. There is no LV thrombus. Dilated and hypokinetic right ventricle. A device lead was visualized in the right atrium and right ventricle. Left Ventricular Wall Motion: Rest Echo Findings The apex, apical inferior, mid inferior, basal inferior, apical anterior, mid anterior, basal anterior, apical septal, mid inferior septal, basal inferior septal, apical lateral, mid anterior lateral, basal anterior lateral, mid anterior septal, mid inferior lateral, basal anterior septal and basal inferior lateral khan were hypokinetic. Findings: Study Quality * Technically adequate exam. ECG Findings * Sinus rhythm with BBB. Left Ventricle * LVEF 10-15%. * Moderately dilated left ventricle. * Severe global left ventricular systolic dysfunction. * There is no LV thrombus. * false tendon noted in the LV apex, which is a normal variant. * False tendon noted in the LV apex, which is a normal variant. Right Ventricle * Dilated and hypokinetic right ventricle. Aorta * Normally sized aortic root. Pericardium * The pericardium appears normal. Device lead * A device lead was visualized in the right atrium and right ventricle. Date of admission: 11/15/18 22:42 Primary care physician: PCP NONE Consults: 11/15/18 23:26 Consult to Nutrition [CONS] Routine Comment: Consulting Provider: NUTRITION Reason for Dietary Consult: MST Score Consult to Fiber Optic Splicer [CONS] Routine Reason for SW Consult: discharge needs 11/16/18 02:26 Consult to Critical Care [CONS] Routine Consulting Provider: Pulm Crit Care & Sleep [place] Reason for Consult: ICU management Call Completed: No Consult to Palliative Care [CONS] Routine Comment: Consulting Provider: Palliative Care [place] Reason for Consult: possible need for end of life care Call Completed: No - Hospital Course Hospital course: I was personally involved in discharge planning services according to patient wishes the goals of care were changed to DNRCC , patient wanted him to take home since he has high chance of dying during the transport and the patient is medically incompetent [place] risk and legal was contacted approved Decisional incapacity hold . Patient was transferred to . - Time Spent with Patient Total time spent providing and/or coordinating discharge services: Physical Examination Vital Signs: Vital Signs, Last 4 Hours Pulse Resp BP Pulse Ox 11/16/18 13:00 90 12 99/68 76
[2018-11-16] MEDS ORDERED: *HR* LORazepam Oral Conc 2 MG/ML SL PRN ×2 (16:00→18:31)
[2018-11-16] MEDS ORDERED: OXYCODONE Oral CONC 10 MG/0.5 ML ORAL.SYG SL PRN ×2 (16:01→18:31)
[2018-11-16] MEDS ORDERED: Atropine 1% Opth Drops 100 DROP/5 ML BOTTLE SL PRN ×2 (16:01→18:31)
[2018-11-16] MEDS ORDERED: Nicotine 21 MG PATCH.TD24 TD SCH (16:15)
--- NOTE | 2018-11-16 17:12 | Pulmonology Consult Note ---
<Refugio Mac - Last Filed: 11/16/18 17:20> Date of Encounter: 11/16/18 Time of Encounter: 17:09 Assessment and Plan (1) Cardiogenic shock Current Visit: Yes Status: Acute Pt with hypotension on arrival, MAP<65 Likely secondary to suspected cardiogenic from NSTEMI versus increased intra- thoracic pressure secondary to large pleural effusion and pulmonary edema EKG showed T wave ischemia in v5/6 Meets severe sepsis criteria for lactic acid 6 on admission with hypotension, hypothermia Plan: - 75cc/hr IVF 0.9% NS - blood cx pending - Continue vancomycin, zosyn, levaquin day 1 - levophed keep MAP>65 We will stop vasopressin as well as Sonu-Synephrine at this time secondary to cardiogenic shock we will continue the Levophed CODE STATUS has been updated to DNR CC. This morning the patient was not alert, and was sleeping. I did speak with the patient's over the phone, he states the patient is a DNR CCA DNI. She states that she will be in later this afternoon shock regarding her 's care. On the right arrived later that afternoon, patient was adamant that he wanted to leave. Patient's stated that she does have healthcare power of patent prosecution attorney, they are , and she states that she wants respect those wishes and she would like to sign papers to leave AGAINST MEDICAL ADVICE at this time. At 1220 the patient was alert and oriented 3, he is aware and able to verbalize his understanding of consequences if he were to leave the hospital. He and his are aware and understanding the fact that he is on multiple medications which are currently allowing him to maintain his blood pressure as well as to breath, they state that they understand that if we remove these medications when they are to leave, there is a possibility that he might prior to being able to get home. Following this conversation, Palliative care was called, they spoke with the patient at length and in depth regarding this decision, offered admission with palliative consult and care with transition to hospice homecare, the is adamantly declining hospice and palliative care at this time. AMA form was signed by patient's at 1425. His at this point does agree with DNR CC. She states she would like to stop all the medications. As the patient's medications were stopped, lines were removed, the patient was going out of consciousness, and at this point in time, 1525 the lead ICU nurse was called to the floor to assess decisional capacity. It was at this time that the patient was alert to person and place, however he was no longer able to insert his understanding of consequences if leaving at this time. At 1533 the medical legal team was called by the charge nurse, who states the patient no longer meets decisional capacity and therefore is deemed decisional incapacity and therefore must be placed on decisional capacity hold. At this point in time, as the patient is DNR CC, the patient will be transferred to for palliative care. (2) Acute respiratory failure Current Visit: Yes Status: Acute Patient with history of congestive heart failure, most recent recent echocardiogram was performed in July 2018 showed ejection fraction of 15% Patient has ICD placement, denies any recent device firing On initial presentation, patient was found to have hypoxia and hypercapnia the ABG Patient is a DNR CCA DNI, therefore the patient was placed on BiPAP, however he declined this and was placed on high flow oxygen mask Patient is remained hypoxic with pulse ox ranging from the low 50% to upper 70% with significant pulmonary edema on chest x-ray Concern for pneumonia given patient's clinical status, was started on vancomycin, Zosyn as well as Levaquin Qualifiers: Respiratory failure complication: hypoxia and hypercapnia Qualified Code(s): J96.01 - Acute respiratory failure with hypoxia; J96.02 - Acute respiratory failure with hypercapnia (3) Heart failure with reduced ejection fraction Current Visit: Yes Status: Acute See respiratory failure Qualifiers: Heart failure chronicity: unspecified Qualified Code(s): I50.20 - Uns pecified systolic (congestive) heart failure (4) NSTEMI (non-ST elevated myocardial infarction) Current Visit: Yes Status: Acute Patient with elevated troponin at time of arrival, with a elevation of 15.24, repeat troponin is 11.44, patient with an STEMI, EKG shows T-wave inversion in V5 and V6, has history of CAD status post CABG with ICD placement Echocardiogram was performed which showed an ejection fraction of 9% History of Present Illness Consult date: 11/16/18 Requesting physician: Eduardo Anthony Reason for consult: other Chief complaint: Shortness of breath and recurrent falls History of present illness: Patient is a 63-year-old male with history of COPD, CHF, ICD placement, COPD and hypertension as well as tobacco and alcohol abuse. On 11/16/2018, patient was transferred from [facility] secondary to recurrent falls and hypotension. Prior to arrival here, patient received a troponin which is elevated at 15, creatinine elevated at 3.21 with an elevated lactic acid at 6. Patient had a chest x-ray at [facility] which showed large pleural effusion. Prior to arrival, patient was given 4 L normal saline bolus. On arrival to [place], patient was found to be significant delay hypotensive with a central line placed. Patient stated that he was DNR CCA DNI. Patient was found to be hypoxic with pulse ox of 60-70%. Patient was placed on BiPAP. On arrival to the ICU, patient remained hypoxic with pulse ox ranging from the 50% to 65%. Patient was placed on Levophed, vasopressin and Sonu-Synephrine on arrival, due to the patient's pulmonary edema, stop vasopressin and Sonu- Synephrine. Continued the levophed. Chest x-ray showed a large right pleural effusion with right lung atelectasis. Patient was started on vancomycin and Zosyn and Levaquin. Patient's serum creatinine had increased to 3.38. Echocardiogram was performed which showed an EF of 9%, with most recent echocardiogram was on 07/23 with an EF of 10-15%. Respiratory the patient is sleeping, unable to contribute to history of present illness. We will speak with the today. Past Med Surg Social Fam HX - Past Medical History Medical history: CHF, COPD, coronary artery disease, renal disease, thyroid disease Additional medical history: thyroid cancer Psychiatric history: no psych history - Past Surgical History Surgical History: coronary bypass (CABG), pacemaker/AICD Additional surgical history: spinal, throat, defib - Social History Smoking Status: Current every day smoker Smokeless Tobacco Status: No Alcohol use: none Drug use: none Medications and Allergies Aspirin [Adult Aspirin] 81 mg PO DAILY 07/12/18 [History] DiphenhydraMINE [Benadryl] 25 mg PO QAM 07/12/18 [History] Levothyroxine Sodium [Levoxyl] 150 mcg PO QAM 07/12/18 [History] Torsemide [Demadex] 20 mg PO QAM 07/12/18 [History] Albuterol Neb [Proventil Neb] 2.5 mg IH Q2H PRN inhsol 07/14/18 [Rx] ALPRAZolam [Xanax 1 MG Tablet] 1 mg PO HS 11/16/18 [History] Albuterol Sulfate [Albuterol Inhaler] 2 puff IH Q6H PRN 11/16/18 [History] Sacubitril/Valsartan 49/51 mg [Entresto 49 mg-51 mg Tablet] 1 tab PO BID 11/16/18 [History] Allergy/AdvReac Type Severity Reaction Status Date / Time dexamethasone Allergy "Ended up Verified 11/16/18 13:19 with a feeding tube." ROS unobtainable: due to mental status All Systems: The remainder of the systems were reviewed and are negative Physical Examination General appearance: no acute distress, asleep Eyes: nonicteric ENT: oropharynx dry Effort: very labored Auscultation: bilateral: diminished breath sounds, rales Cardiovascular: regular rate and rhythm Gastrointestinal: normoactive bowel sounds, soft, non-tender, non-distended Extremities: pulses normal, edema (2+ pitting edema in the lower extremities) pupils equal and round, other (Patient is sleep and will not wake up for assessment) Results - Laboratory Findings CBC and BMP: 11/16/18 05:05 11/16/18 05:05 ABG ABG pH 7.24 pH Units (7.32-7.45) L 11/16/18 01:32 ABG pCO2 64 mmHg (35-45) H 11/16/18 01:32 ABG pO2 59 mmHg (85-104) L 11/16/18 01:32 ABG O2 Saturation 84 % (95-98) L 11/16/18 01:32 PT/INR, D-dimer PT 15.4 Seconds (9.4-12.1) H 11/15/18 23:11 Abnormal lab findings: Abnormal lab results WBC 11.7 K/mcL (4.3-11.1) H 11/16/18 05:05 RBC 4.00 M/mcL (4.19-5.50) L 11/15/18 23:11 MCV 108.7 fL (83.0-100.0) H 11/16/18 05:05 MCH 33.4 pg (28.0-33.3) H 11/16/18 05:05 MCHC 30.7 g/dL (31.6-35.5) L 11/16/18 05:05 RDW 17.2 % (11.5-14.5) H 11/16/18 05:05 PT 15.4 Seconds (9.4-12.1) H 11/15/18 23:11 ABG pH 7.24 pH Units (7.32-7.45) L 11/16/18 01:32 ABG pCO2 64 mmHg (35-45) H 11/16/18 01:32 ABG pO2 59 mmHg (85-104) L 11/16/18 01:32 ABG Total CO2 29 mEq/L (20-26) H 11/16/18 01:32 ABG O2 Saturation 84 % (95-98) L 11/16/18 01:32 Sodium 129 mEq/L (136-145) L 11/16/18 05:05 Chloride 86 mEq/L (98-107) L 11/16/18 05:05 BUN 67 mg/dL (8-23) H 11/16/18 05:05 3.46 mg/dL (0.70-1.30) H 11/16/18 05:05 Est GFR ( Amer) 22 (> 60) L 11/16/18 05:05 Est GFR (Non-Af Amer) 18 (> 60) L 11/16/18 05:05 Glucose 148 mg/dL (70-105) H 11/16/18 05:05 POC Glucose 117 mg/dL (70-99) H 11/16/18 01:00 Calcium 8.2 mg/dL (8.6-10.3) L 11/16/18 05:05 Venous Ioniz Calcium 0.88 mmol/L (1.15-1.35) L 11/16/18 05:28 Phosphorus 6.2 mg/dL (2.7-4.5) H 11/15/18 23:04 2.4 mg/dL (0.3-1.0) H 11/16/18 05:05 118 Units/L (34-104) H 11/16/18 05:05 11.44 ng/mL (< 0.04) H* 11/16/18 05:05 6.3 g/dL (6.4-8.9) L 11/16/18 05:05 - Microbiology Findings Microbiology Findings: Microbiology, Last 48 Hours 11/16/18 04:00 Legionella Antigen - Final Urine,Clean Catch Streptococcus pneumoniae Antigen (M - Final 11/15/18 23:32 Blood Culture - Preliminary Peripheral Venipuncture Culture is incubating and being continuously mon itored for growth. Final report to follow. 11/16/18 01:30 Blood Culture - Preliminary Peripheral Venipuncture Culture is incubating and being continuously monitored for growth. Final report to follow. - Diagnostic Findings Chest x-ray: report reviewed, image reviewed - Clinical Findings Intake & Output: Intake & Output 11/16/18 11/16/18 11/16/18 07:59 15:59 23:59 Intake Total 418 / 1008 590 / 1008 Output Total 170 / 270 100 / 270 Balance 248 / 738 490 / 738 Weight 84.3 kg Consult Discharge Plan - Plan Referrals: NONE,PCP [Primary Care Provider] - <Keyla Bourgeois - Last Filed: 11/16/18 22:34> Date of Encounter: 11/16/18 All Systems: The remainder of the systems were reviewed and are negative Physical Examination Vital Signs: Vital Signs, Last 4 Hours Pulse Resp BP 11/16/18 21:25 60 15 61/39 11/16/18 20:56 14 Results - Laboratory Findings CBC and BMP: 11/16/18 05:05 11/16/18 05:05 ABG ABG pH 7.24 pH Units (7.32-7.45) L 11/16/18 01:32 ABG pCO2 64 mmHg (35-45) H 11/16/18 01:32 ABG pO2 59 mmHg (85-104) L 11/16/18 01:32 ABG O2 Saturation 84 % (95-98) L 11/16/18 01:32 PT/INR, D-dimer PT 15.4 Seconds (9.4-12.1) H 11/15/18 23:11 Abnormal lab findings: Abnormal lab results WBC 11.7 K/mcL (4.3-11.1) H 11/16/18 05:05 RBC 4.00 M/mcL (4.19-5.50) L 11/15/18 23:11 MCV 108.7 fL (83.0-100.0) H 11/16/18 05:05 MCH 33.4 pg (28.0-33.3) H 11/16/18 05:05 MCHC 30.7 g/dL (31.6-35.5) L 11/16/18 05:05 RDW 17.2 % (11.5-14.5) H 11/16/18 05:05 PT 15.4 Seconds (9.4-12.1) H 11/15/18 23:11 ABG pH 7.24 pH Units (7.32-7.45) L 11/16/18 01:32 ABG pCO2 64 mmHg (35-45) H 11/16/18 01:32 ABG pO2 59 mmHg (85-104) L 11/16/18 01:32 ABG Total CO2 29 mEq/L (20-26) H 11/16/18 01:32 ABG O2 Saturation 84 % (95-98) L 11/16/18 01:32 Sodium 129 mEq/L (136-145) L 11/16/18 05:05 Chloride 86 mEq/L (98-107) L 11/16/18 05:05 BUN 67 mg/dL (8-23) H 11/16/18 05:05 3.46 mg/dL (0.70-1.30) H 11/16/18 05:05 Est GFR ( Amer) 22 (> 60) L 11/16/18 05:05 Est GFR (Non-Af Amer) 18 (> 60) L 11/16/18 05:05 Glucose 148 mg/dL (70-105) H 11/16/18 05:05 POC Glucose 117 mg/dL (70-99) H 11/16/18 01:00 Calcium 8.2 mg/dL (8.6-10.3) L 11/16/18 05:05 Venous Ioniz Calcium 0.88 mmol/L (1.15-1.35) L 11/16/18 05:28 Phosphorus 6.2 mg/dL (2.7-4.5) H 11/15/18 23:04 2.4 mg/dL (0.3-1.0) H 11/16/18 05:05 118 Units/L (34-104) H 11/16/18 05:05 11.44 ng/mL (< 0.04) H* 11/16/18 05:05 6.3 g/dL (6.4-8.9) L 11/16/18 05:05 - Microbiology Findings Microbiology Findings: Microbiology, Last 48 Hours 11/16/18 04:00 Legionella Antigen - Final Urine,Clean Catch Streptococcus pneumoniae Antigen (M - Final 11/15/18 23:32 Blood Culture - Preliminary Peripheral Venipuncture Culture is incubating and being continuously monitored for growth. Final report to follow. 11/16/18 01:30 Blood Culture - Preliminary Peripheral Venipuncture Culture is incubating and being continuously monitored for growth. Final report to follow. - Clinical Findings Intake & Output: Intake & Output 11/16/18 11/16/18 11/16/18 07:59 15:59 23:59 Intake Total 418 / 1008 590 / 1008 Output Total 170 / 270 100 / 270 Balance 248 / 738 490 / 738 Weight 84.3 kg - Attending Attestation I saw and evaluated this patient and my medical decision-making was reviewed with the Resident Physician. I agree with the documented findings, disposition and treatment plan as described except to the extent set forth below. We independently had [id number] contact with the patient Patient seen and examined at bedside Labs, radiology, chart personally reviewed. Management was reviewed during multidisciplinary critical care rounds. RN MILITARY: Patient conscious with episodic confusion consistent with delirium secondary to toxic/metabolic causes. Pulm: Patient does not want to intubation and mechanical ventilation patient has bilateral interstitial pulmonary edema pleural effusion on the right side patient was on BiPAP now is on nasal cannula and he does not want to tolerate BiPAP. Patient saturating in the 50-60% but patient is talking with us patient want comfort Measures now. Cards Patient is hemodynamically unstable most likely septic also cardiogenic shock with EF around 10% patient is on levophed FEN-GI: Advance diet as tolerated patient complication wishes only Renal: Acute kidney injury patient will need dialysis as patient opted for comfort We will transition him to palliative care. ID: To stop THE broad-spectrum antibiotics for goals of care is changed Heme/Onc: Labs reviewed Endo: Glucose Monitored Integ/MSK: Skin Care per routine ICU Nursing Protocol to prevent ulcers. Lines: All lines examined without evidence of infection : Dispo: transfer to palliative care CODE:DNRCC
--- NOTE | 2018-11-16 19:53 | Event Note ---
Date of Encounter: 11/16/18 Time of Encounter: 14:00 1400: Notified by palliative EXECUTIVE ADMINISTRATIVE ASST Delisa that patient is unstable and wanting to leave AMA, and is agreeable to sign and take responsibilities. Went to the bedside in an attempt to discuss with patient and and provide a safer discharge option. On arival, patient was off oxygen and off levophed, O2 sat consistently in the low 60s, and BP dropping to 60/40. He is demanding to be released to return home with his . Explained that patiet is too unstable and is not likely to make it out of he hospital. Patient stated he is dying and wants to go home. Offered to continue fluid and medication resuscitation, in an attempt to buy time and involve hospice to give patient a chance to achieve his wish to return home. Patient refused, did not seem to understand the risk, stated that patient was given for several times and is still alive, and decided to sign AMA papers. 1530: Notified by ICU resident that legal was involved and patient was lacking capacity at the time of their evaluation. So a 72 hour hold order was placed per hospital policy. Patient to remain in [facility], transferred out of ICU under hospitalist care, palliative care will assist with comfort care.
[2018-11-16] MEDS ORDERED: ALPRAZolam 1 MG TABLET PO SCH (21:00)
[2018-11-16 21:26] VITALS: BP 61/39
[2018-11-16] MEDS ORDERED: Aminoglycoside Consult 1 EACH MC ONE (22:12)
--- NOTE | 2018-11-16 22:19 | Event Note ---
Date of Encounter: 11/16/18 Time of Encounter: 22:[address] Montano and myself that the patient had at 22:13 this evening. Pt pronounced , no breath sounds/pulses/heart tones auscultated. RN notified to give certificate and for discharge to be given to ICU attending.
[2018-11-17] MEDS ORDERED: Aspirin Enteric Coated 81 MG Tablet PO SCH (09:00)
[2018-11-17] MEDS ORDERED: Nicotine 21 MG PATCH.TD24 TD SCH (09:00)
--- NOTE | 2018-11-17 16:39 | Death Note ---
<Tim Matt Jake - Last Filed: 11/17/18 16:36> Discharge Sum: Summary - Date and Time Date of admission: 11/15/18 22:42 Date of : 11/16/18 Time of : 22:13 - Summary Details: Admitted 11/15/18 in septic shock requiring multiple pressors, acute respiratory failure on BiPAP given code status of DNR DNI and NSTEMI. While in the ICU on BiPAP O2 sats consistently in the 60s, BP on NE, epinephrine, and vasopressin with MAP 40-70 and labile. As the morning progressed he became more somnolent and requested to go home. Palliative care was notified and after long discussion he and his were determined to leave A. As pressors were weaning off BP was ~60/40 and [place] legal team was involved as the patient was lacking capacity at the time. While off pressors and transfer to he was pronounced at 2213 on 11/16/18. - Additional Data Confirmation of as documented by pronouncing clinician: no pulse, no respirations, no heart sounds Family: at bedside Attending physician: Blake Fan Was code activated?: No Autopsy requested?: No computer forensic examiner notified?: Yes Organ bank notified?: No Advance directives: Yes Hospice patient?: No Discharge Sum: Diag - PCOD Probable Cause of : Cardiorespiratory arrest Discharge Sum: Prov - Provider Primary care physician: PCP NONE Admitting clinician: Eduardo Anthony Attending physician on admission: Eduardo Anthony Consults: 11/15/18 23:26 Consult to Nutrition [CONS] Routine Comment: Consulting Provider: NUTRITION Reason for Dietary Consult: MST Score Consult to Automatic Beam Warper Tender [CONS] Routine Reason for SW Consult: discharge needs 11/16/18 02:26 Consult to Palliative Care [CONS] Routine Comment: Consulting Provider: Palliative Care [place] Reason for Consult: possible need for end of life care Call Completed: No Pronouncing clinician: Kee Baez <Keyla Bourgeois - Last Filed: 11/18/18 00:13> Discharge Sum: Summary - Date and Time Date of admission: 11/15/18 22:42 - Summary Details: Agree with the above documentation by the resident. - Additional Data Attending physician: Supo A Folaranmi Discharge Sum: Prov - Provider Primary care physician: PCP NONE Consults: 11/15/18 23:26 Consult to Nutrition [CONS] Routine Comment: Consulting Provider: NUTRITION Reason for Dietary Consult: MST Score Consult to Automatic Beam Warper Tender [CONS] Routine Reason for SW Consult: discharge needs 11/16/18 02:26 Consult to Palliative Care [CONS] Routine Comment: Consulting Provider: Palliative Care [place] Reason for Consult: possible need for end of life care Call Completed: No
[2018-11-18] MEDS ORDERED: Levofloxacin 500 MG/100 ML 500 MG/100 ML BAG IVPB SCH (09:00)
== END 2018-11-16 22:13 | disposition expired | DRG 871 ==
LOC: 2NNU 22:42 → ICNU 11-16 00:59 → 2ANU 11-16 21:12
PROVIDERS: ADMIT Student in an Organized Health Care Education/Training Program; ATTEND Student in an Organized Health Care Education/Training Program